=== PATIENT | female | born 1985 | race Caucasian/White ===

== ENCOUNTER → 2021-06-10 06:56 | Outpatient (CLI) | payer OTHER, SELFPAY ==
[2021-06-10 09:27] LABS: Glucose Tol Interpretation INTERPRETATION
[2021-06-10 10:12] LABS: Glucose 1 Hour 151 mg/dL (70-170)
[2021-06-10 10:12] LABS: Glucose Fasting 78 mg/dL (70-100)
[2021-06-10 11:26] LABS: Glucose 2 Hour 122 mg/dL (70-140)
== END ==
PROVIDERS: Referring Provider Nurse Practitioner Obstetrics & Gynecology; Visit Provider Nurse Practitioner Obstetrics & Gynecology
DX: Z34.90 Encounter for supervision of normal pregnancy, unspecified, unspecified trimester (principal); Z3A.16 16 weeks gestation of pregnancy
CPT/HCPCS: 36415; 82951; 82952

== ENCOUNTER → 2021-07-02 12:25 | Outpatient (CLI) | payer OTHER, SELFPAY ==
--- NOTE | 2021-07-02 | DI.US.S_ITS ---
PROCEDURE: US OB >= 14 WEEKS FETUS INDICATIONS: 20 WEEK ANATOMY SCAN OUTSIDE/PRIOR DATING DATA: Last menstrual period (LMP): 02/12/2021. LMP-based estimated date of delivery (QUE): 11/19/2021. First dating scan (date and location): 07/02/2021. Estimated date of delivery (QUE) from first dating scan: 11/15/2021. TECHNIQUE: Real-time scanning was performed of the fetus, with image documentation and biometric measurements. Endovaginal scanning: No COMPARISON: None. FINDINGS: General: A single living intrauterine gestation is present. Presentation: Vertex. Placenta: Placental position is anterior , without previa. Amniotic fluid index: 15.4 cm, normal range is 5-24 cm. heart rate: 145 beats per minute. Maternal cervical canal: 4.0 cm long. Normal lower limit is 2.5 cm. biometrics: Biparietal diameter: 46 mm; 19 weeks 6 days Head circumference: 179 mm; 20 weeks 2 days Abdominal circumference: 156 mm; 20 weeks 6 days Femur length: 36 mm; 21 weeks 2 days Composite gestational age from present scan: 20 weeks 4 days Estimated weight and percentile: 384 g, which is at the 90th percentile for gestational age Anatomic survey: Neuro: Ventricles are non-dilated at less than 10 mm. Cisterna magna is normal at 3-11 mm. Cerebellum is normal in size and morphology. Nuchal skin fold: Normal at less than 6 mm between 14-21 weeks gestational age. Face: Nose and lips, facial profile are normal. Spine: No evidence for spina bifida. Heart: 4-chambered heart is present, with normal ventricular outflow tracts. Diaphragm: Diaphragm is intact. Stomach: Left-sided stomach is present. Kidneys: No hydronephrosis. Normal is less than 5 mm in 2nd trimester, less than 7 mm in 3rd trimester. Cord: 3-vessel cord has orthotopic insertion. Bladder: Normal in size. Extremities: All 4 extremities identified. IMPRESSION: 1. Single living intrauterine gestation. 2. Normal survey of anatomy. We strive to produce accurate, complete, and clear reports of imaging services. To assist us in improving patient care, this report was composed using standard report templates and voice recognition software. Therefore, it may contain abnormal punctuation, insertions and/or omissions. Occasional wrong-word or sound-alike substitutions may occur. Though we review the report and make efforts to correct it, we do recommend that the report be read carefully in proper context to recognize any text inaccuracies. Dictated by: Shakir Sheikh M.D. on 07/02/2021 at 16:55 Approved by: Shakir Sheikh M.D. on 07/02/2021 at 16:57
== END ==
PROVIDERS: PCP Registered Nurse; Referring Provider Nurse Practitioner Obstetrics & Gynecology; Visit Provider Nurse Practitioner Obstetrics & Gynecology
DX: Z36.89 Encounter for other specified antenatal screening (principal); Z3A.20 20 weeks gestation of pregnancy
CPT/HCPCS: 76811

== ENCOUNTER → 2021-08-22 06:52 | Outpatient (CLI) | payer OTHER, SELFPAY ==
[2021-08-22 07:58] LABS: Hematocrit 32.7 % (36-46); Hemoglobin 11.2 g/dL (12.0-16.0); Mean Corpuscular HGB Conc 34.1 % (30-36); Mean Corpuscular Hemoglobin 30.6 PG (26-34); Mean Corpuscular Volume 89.5 fL (80-100); Platelet Count 372 X10^3/uL (150-400); Red Blood Cell Count 3.66 X10^6/uL (4.0-5.2); Red Cell Distribution Width 13.2 % (11.6-14.8); White Blood Cell Count 10.2 X10^3/uL (4.5-11.0)
[2021-08-22 08:23] LABS: Glucose Fasting 79 mg/dL (70-100)
[2021-08-22 08:36] LABS: Glucose 1 Hour 170 mg/dL (70-170)
[2021-08-22 09:11] LABS: Hep C Virus Ab w/Reflex Quant NEGATIVE s/c (NEGATIVE)
[2021-08-22 09:19] LABS: Glucose Tol Interpretation INTERPRETATION
[2021-08-22 09:54] LABS: Glucose 2 Hour 132 mg/dL (70-140)
[2021-08-23 07:36] LABS: Varicella IgG Antibody 742 index (Immune >165)
== END ==
PROVIDERS: PCP Registered Nurse; Referring Provider Nurse Practitioner Obstetrics & Gynecology; Visit Provider Nurse Practitioner Obstetrics & Gynecology
DX: Z34.90 Encounter for supervision of normal pregnancy, unspecified, unspecified trimester (principal); Z3A.26 26 weeks gestation of pregnancy
CPT/HCPCS: 36415; 82951; 82952; 85027; 86787; 86803

== ENCOUNTER 2021-10-22 14:14 | Observation (INO) | payer OTHER, SELFPAY ==
[2021-10-22 15:24] LABS: Add Manual Diff / Slide Review NO; Basophils Absolute Auto 100 /uL (0-100); Basophils Percent Auto 0.8 % (0-2); Eosinophils Absolute Auto 200 /uL (0-450); Eosinophils Percent Auto 2.8 % (2-4); Hematocrit 27.4 % (36-46); Hemoglobin 9.7 g/dL (12.0-16.0); Lymphocytes Absolute Auto 2000 /uL (1100-4500); Lymphocytes Percent Auto 23.2 % (25-40); Mean Corpuscular HGB Conc 35.3 % (30-36); Mean Corpuscular Hemoglobin 31.4 PG (26-34); Mean Corpuscular Volume 88.8 fL (80-100); Monocytes Absolute Auto 500 /uL (0-900); Monocytes Percent Auto 5.8 % (3-14); Neutrophils Absolute Auto 5700 /uL (1500-7000); Neutrophils Percent Auto 67.4 % (50-75); Platelet Count 230 X10^3/uL (150-400); Red Blood Cell Count 3.08 X10^6/uL (4.0-5.2); Red Cell Distribution Width 15.2 % (11.6-14.8); White Blood Cell Count 8.5 X10^3/uL (4.5-11.0)
[2021-10-22 15:33] LABS: Bilirubin Urine UA NEGATIVE (NEGATIVE); Color Urine UA YELLOW; Glucose Urine UA NEGATIVE (Negative); Ketones Urine UA NEGATIVE (NEGATIVE); Leukocyte Esterase Urine UA 3+ (NEGATIVE); Nitrite Urine UA NEGATIVE (Negative); Occult Blood Urine UA TRACE-LYSED (Negative); Protein Urine UA 1+ (Negative); Specific Gravity Urine UA 1.015 (1.000-1.035); Urobilinogen Urine UA 0.2 E.U./dL (0.2)
[2021-10-22 15:47] LABS: Appearance Urine UA Slightly Cloudy
[2021-10-22 15:49] LABS: Amorphous Sediment Urine 2+; Bacteria Urine Few (2-10); Calcium Oxalate Crystals Urine Few; Culture Indicated Urine Specimen Cultured; Mucus Urine 1+ (Negative); RBC Urine 1-5/HPF (0-5/HPF); Squamous Epithelial Cell Urine 1-5 /HPF (0-5/HPF); WBC Urine 10-30/HPF (0-5/HPF)
[2021-10-22 15:49] LABS: Aspartate Aminotransferase 31 IU/L (14-36); BUN Creatinine Ratio 12.2 (6-22); Blood Urea Nitrogen 11 mg/dL (7-17); Estimated Glomerular Filt Rate > 60 mL/min (>60); Uric Acid 7.1 mg/dL (2.5-6.2)
--- NOTE | 2021-10-22 16:01 | DI.US.S_ITS ---
PROCEDURE: US OB LIMITED INDICATIONS: gestational hypertension OUTSIDE/PRIOR DATING DATA: Last menstrual period (LMP): 02/12/2021. LMP-based estimated date of delivery (QUE): 11/19/2021. First dating scan (date and location): 07/02/2021. Estimated date of delivery (QUE) from first dating scan: 11/15/2021. The calculations are made using the ultrasound QUE of 11/15/2021. TECHNIQUE: Real-time scanning was performed of the fetus, with image documentation. Endovaginal scanning: Not performed COMPARISON: None. FINDINGS: A single living intrauterine gestation is present. Presentation: Cephalic. Placenta: Placental position is anterior, without previa. Amniotic fluid index: 15.1 cm, normal range is 5-24 cm. heart rate: 135 beats per minute. Maternal cervical canal: Not seen Estimated gestational age from current study: 34 weeks 1 day. Estimated gestational age from initial ultrasound: 36 weeks 4 days. Estimated weight: 2251 grams Biophysical profile score 8/8. Umbilical artery S/D ratios 2.0, 2.0, 2.5 IMPRESSION: Single living intrauterine gestation with normal biophysical profile and normal cord Doppler systolic/diastolic ratios. Dictated by: Jorge L Rodriguez M.D. on 10/22/2021 at 16:59 Approved by: Jorge L Rodriguez M.D. on 10/22/2021 at 17:02
--- NOTE | 2021-10-22 17:33 | P.TNLD_ITS ---
Visit Information Visit Information Date of evaluation: 10/22/21 Primary OB Provider: Amanda Martinez On-call OB Provider: Debbie Jackson Reason for Evaluation: Yes other Comments/Additional reasons for admission: 36YO @ 36wks0 days by LMP and 6wk US who was referred from clinic for evaluation of elevated BPs. Uncomplicated PN care w/ CNM. No FERNANDEZ, vision changed, RUQ pain or edema. +FM. No cramping or VB. Vital Signs Vital Signs: Serial BPs: 143/87, 139/58, 142/86, 131/83, 138/75, 138/84, 134/81, 145/90, 145/88, 136/80, 138/85, 148/88, 132/78 PFSH Medical History (Updated 10/22/21 @ 18:00 by Amanda Martinez CNM) Infertility Right hip pain Surgical History (Updated 10/22/21 @ 17:52 by Amanda Martinez CNM) History of appendectomy Family History (Updated 10/22/21 @ 17:53 by Amanda Martinez CNM) Father Hypertension Mother Hypertension Social History (Updated 10/22/21 @ 17:53 by Amanda Martinez CNM) marital status: household members: spouse lives independently: Yes occupational status: employed Review of Systems Review of Systems ROS: Yes All systems reviewed with the patient and are negative except as otherwise documented Exam Vital Signs (past 8 hours): Serial BPs above, HR 87, T 98.0F Temporal Presentation: vertex Other: CE deferred Objective Imaging OB US >14 wks limited: My impression: BPP 8/8, AMBROCIO 15.1cm, MVP 5.0cm, EFW 2251g/3%, Artery S/D 2.2, 2.5 Labs Result Diagrams: 10/22/21 15:18 10/22/21 15:18 Labs: Laboratory Results - last 24 hr 10/22/21 10/22/21 10/22/21 15:18 15:18 15:21 WBC 8.5 RBC 3.08 L Hgb 9.7 L Hct 27.4 L MCV 88.8 MCH 31.4 MCHC 35.3 RDW 15.2 H Plt Count 230 Neut % (Auto) 67.4 Lymph % (Auto) 23.2 L Grainger % (Auto) 5.8 Eos % (Auto) 2.8 Baso % (Auto) 0.8 Neut # (Auto) 5700 Lymph # (Auto) 2000 [place]inger # (Auto) 500 Eos # (Auto) 200 Baso # (Auto) 100 BUN 11 Creatinine 0.90 Estimated GFR > 60 BUN/Creatinine Ratio 12.2 Uric Acid 7.1 H AST 31 Urine Color Yellow Urine Appearance Slightly cloudy Urine pH 7.0 Ur Specific [place] 1.015 Urine Protein 1+ H Urine Glucose (UA) Negative Urine Ketones Negative Urine Occult Blood Trace-lysed Urine Nitrate Negative Urine Bilirubin Negative Urine Urobilinogen 0.2 Ur Leukocyte Esterase 3+ H Urine RBC 1-5/hpf Urine WBC 10-30/hpf H Ur Squamous Epith Cells 1-5 /hpf Calcium Oxalate Crystal Few H Amorphous Sediment 2+ Urine Bacteria Few (2-10) H Urine Mucus 1+ H Ur Culture Indicated? Specimen cultured Evaluation Evaluation Baseline heart rate: 145 Variability: Moderate (11-25) monitor accelerations: Present Monitor Decelerations: Variable (single prolonged, lasting 2.5 minutes w/ neisha to 95bpm) Contraction Frequency (minutes): 0 Diagnosis, Plan/Disposition Final Diagnosis (1) Gestational hypertension: Status: Acute (2) Intrauterine growth restriction (IUGR) affecting care of mother, first trimester, single gestation: Status: Acute (3) Anemia affecting : Status: Acute Plan/Disposition Plan: Consulted [facility]/ who agreed w/ POC for repeat BPP in 5 days and IOL in 7 days @ 37wks. Reviewed warning sx and when to call w/ patient. OB Disposition: home
[2021-10-22 17:35] LABS: Creatinine Urine Random 81.4 mg/dL; Protein (Total) Urine Random 34 mg/dL (0-12); Protein Creatinine Ratio Urine 0.41 GRAM/24H
== END 2021-10-22 17:30 | disposition home or self-care (01) ==
PROVIDERS: Admitting Provider Nurse Practitioner Obstetrics & Gynecology; PCP Registered Nurse; Referring Provider Nurse Practitioner Obstetrics & Gynecology; Visit Provider Nurse Practitioner Obstetrics & Gynecology
DX: Z36.85 Encounter for antenatal screening for Streptococcus B (principal); O13.3 Gestational [pregnancy-induced] hypertension without significant proteinuria, third trimester; O36.5930 Maternal care for other known or suspected poor fetal growth, third trimester, not applicable or unspecified; O99.013 Anemia complicating pregnancy, third trimester; Z3A.36 36 weeks gestation of pregnancy
CPT/HCPCS: 59025; 59050; 76815; 76819; 81001; 82570; 84156; 84450; 84550; 85025; 87081; 87086; G0378; G0379

== ENCOUNTER → 2021-10-22 19:54 | Outpatient (ROUT) | payer OTHER, SELFPAY | PROVIDERS: PCP Registered Nurse; Visit Provider Nurse Practitioner Obstetrics & Gynecology | DX: Z36.85 Encounter for antenatal screening for Streptococcus B (principal); Z3A.36 36 weeks gestation of pregnancy | CPT/HCPCS: 87081 ==

== ENCOUNTER 2021-10-28 19:37 | Inpatient (IN) | payer OTHER, SELFPAY ==
[2021-10-28 20:25] VITALS: BP 157/103; PULSE 84
[2021-10-28] MEDS: LABETALOL 20 MG/4 ML SYRINGE IV (20:25)
--- NOTE | 2021-10-28 20:34 | P.HPOB_ITS ---
OB HPI Date/Time Date of admission: 10/28/21 Date Patient Seen: 10/28/21 Time Patient Seen: 20:00 History of Present Condition Chief complaint: induction : 1 Para: 0 Estimated Date of Delivery: 10/28/21 Estimated Gestational Age (weeks): 36.6 Narrative: Jaye Turk is a 36 year old female @ LMP and 10wk US who presents for IOL for preeclampsia and IUGR. Uncomplicated PN care w/ CNM until diagnosis of pr eeclampsia and IUGR 10/22/21 with serial BPs 130-140's/70's-80's, Pr:Cr 0.41 and EFW 2251g/3%, AMBROCIO 15.1cm, BPP 8/8. Also had a BPP of 8/8 on 10/27/21. Has a mild FERNANDEZ, rated 2/10 and had not taken anything. No vision changes, RUQ pain or edema. Anxious about the and complications, but eager to meet her baby and agreeable to interventions needed. Indications Indication for induction OB: gestational HTN/pre-eclampsia and intra-uterine growth restriction History of Present care: good care, initiated at week # (10), number of visits (9) and pounds weight gain (32) Dating criteria: LMP confirmed by 1st trimester US Ultrasounds: normal mid trimester US Obstetrical complications: preeclampsia and growth restriction Medical complications: other (anemia) Preadmission Labs Blood type: O (+) positive -: Antibody screen: negative, GBS status: negative, HBsAG: negative, HIV: negative and RPR/VDLR: negative -: Rubella: immune and Varicella: immune HCT: 30.6 HCAB: negative Cell-free DNA: Negative, female Narrative: 2hr gtt: 79/170/132 Evaluation Evaluation Baseline heart rate: 120 Variability: Moderate (11-25) monitor accelerations: Present Monitor Decelerations: Absent Contraction Frequency (minutes): 0 Dilation: Closed Effacement: 40-50% station: -3 Position of cervix: posterior Consistency: medium Chavez score: 2 PFSH Medical History Infertility Right hip pain Surgical History History of appendectomy Family History Father Hypertension Mother Hypertension Social History marital status: household members: spouse lives independently: Yes occupational status: employed Meds Home Medications and Allergies Home Medications Medication Instructions Recorded Confirmed Type metformin 500 mg tablet tab 10/28/21 History Allergies Allergy/AdvReac Type Severity Reaction Status Date / Time No Known Drug Allergies Allergy Verified 10/22/21 15:03 Review of Systems Review of Systems ROS: Yes All systems reviewed with the patient and are negative except as other dumont documented OB Exam Narrative Exam Narrative: VS: 164/104, HR 85bpm, T 36.2C Temporal Resp Effort & Inspection: normal respiratory effort and able to speak in complete sentences Auscultation: clear to auscultation bilaterally Cardio Rate: regular rate Rhythm: regular rhythm Extremities DTR's: Rt Patellar: 0 and Lt Patellar: 0 Presentation: vertex Objective Labs Result Diagrams: 10/28/21 20:25 10/28/21 20:25 Assessment and Plan Assessment and Plan Assessment and Plan narrative: A: Term nullipara IOL for: Preeclampsia & IUGR, cervix not favorable Severe range BP: antihypertensive and MgSO4 indicated Obesity with pre- insulin resistance tx'd with metformin 500mg PO daily Anxiety No indication for GB prophylaxis Cat I FHR P: Informed consent for IOL obtained. Admit for cervical ripening. Consulted [facility]/ for severe range BPs who agrees with co-management and initiated labetalol 20mg IV and MgSO4. Dr. Hidalgo to manage BP, CNM to manage labor. Cervadil for cervical ripening overnight. Will attempt Ruiz balloon in am.
[2021-10-28 20:44] LABS: Add Manual Diff / Slide Review NO; Basophils Absolute Auto 100 /uL (0-100); Basophils Percent Auto 1.1 % (0-2); Eosinophils Absolute Auto 300 /uL (0-450); Eosinophils Percent Auto 2.9 % (2-4); Hematocrit 30.9 % (36-46); Hemoglobin 10.6 g/dL (12.0-16.0); Lymphocytes Absolute Auto 2600 /uL (1100-4500); Lymphocytes Percent Auto 27.8 % (25-40); Mean Corpuscular HGB Conc 34.2 % (30-36); Mean Corpuscular Hemoglobin 30.7 PG (26-34); Mean Corpuscular Volume 89.8 fL (80-100); Monocytes Absolute Auto 600 /uL (0-900); Monocytes Percent Auto 6.3 % (3-14); Neutrophils Absolute Auto 5900 /uL (1500-7000); Neutrophils Percent Auto 61.9 % (50-75); Platelet Count 251 X10^3/uL (150-400); Red Blood Cell Count 3.45 X10^6/uL (4.0-5.2); Red Cell Distribution Width 15.7 % (11.6-14.8); White Blood Cell Count 9.4 X10^3/uL (4.5-11.0)
[2021-10-28 21:01] LABS: Aspartate Aminotransferase 23 IU/L (14-36); BUN Creatinine Ratio 17.9 (6-22); Blood Urea Nitrogen 12 mg/dL (7-17); Estimated Glomerular Filt Rate > 60 mL/min (>60); Uric Acid 6.8 mg/dL (2.5-6.2)
[2021-10-28 21:01] LABS: COVID19 -Nasal RAPID Negative (Negative)
[2021-10-28] MEDS: MAGNESIUM SULFATE 4 GM/100 ML PIGGYBACK IV (21:10)
[2021-10-28] MEDS: DINOPROSTONE VAG (CERVIDIL) 10 MG VAG (21:22)
[2021-10-28] MEDS: MAGNESIUM SULFATE 20 GM/500 ML IV.SOLN IV (21:41)
[2021-10-28 22:02] LABS: Creatinine Urine Random 25.9 mg/dL; Protein (Total) Urine Random 33 mg/dL (0-12); Protein Creatinine Ratio Urine 1.27 GRAM/24H
[2021-10-29] MEDS: hydrOXYzine pamoate 25 MG CAPSULE 50 MG PO (00:35)
[2021-10-29] MEDS: ACETAMINOPHEN 325 MG TABLET 650 MG PO ×3 (00:50→20:15)
[2021-10-29 02:48] LABS: Magnesium 4.5 mg/dL (1.6-2.3)
[2021-10-29] MEDS: MAGNESIUM SULFATE 20 GM/500 ML IV.SOLN IV ×2 (08:02→18:14)
[2021-10-29 08:07] VITALS: BP 133/88; PULSE 87
[2021-10-29] MEDS: LABETALOL 100 MG TABLET 200 MG PO ×2 (08:07→19:35)
[2021-10-29 08:48] VITALS: BP 159/97; PULSE 82
--- NOTE | 2021-10-29 09:40 | PM.OBPNLAB ---
Pain Control Comments: Pt able to sleep intermittently through the night. Last BP 149/93. FHR cat 1. Reports mild FERNANDEZ which feels is typical for herand she has not been hydrating well, minimal relief with Tylenol. Mild nausea but able to tolerate PO this morning. Cervidil removed 0900. VS: BP 149/93mmHg, HR 78bpm, RR 18/min, T 35.8C Temporal, SpO2 97% on RA Pelvic Exam Dilation (cm): 0 Effacement (%): 40 station: -3 Amniotic membrane status: Intact Contractions Contractions on admission: none Monitor mode: External Pitocin rate (mU/min): 0 Status status: Category l Heart Rate Baseline: 125 Monitor Accelerations: Present Monitor Decelerations: Absent Monitor Variability: Moderate Assessment and Plan Assessment: induction ongoing Comments: Discussed need for continued cervical ripening, orders for PO misoprostil placed, reassess in 8 hrs. Will attempt Ruiz once 1cm dilated.
[2021-10-29 10:08] LABS: Magnesium 5.7 mg/dL (1.6-2.3)
[2021-10-29] MEDS: miSOPROStoL 25 MCG TABLET 50 MCG PO ×2 (11:03→15:16)
[2021-10-29 13:56] VITALS: BP 143/96
[2021-10-29 14:19] LABS: Magnesium 5.9 mg/dL (1.6-2.3)
[2021-10-29] MEDS: LACTATED RINGERS 1,000 ML 100 ML IV (15:17)
[2021-10-29] MEDS: fentaNYL 100 MCG/2 ML INJ IV (18:12)
--- NOTE | 2021-10-29 18:48 | PM.OBPNLAB ---
Date/Time Date Patient Seen: 10/29/21 Time Patient Seen: 18:15 Pain Control Pain control: narcotic analgesia (given prior to Ruiz balloon placement) Comments: Has been able to sleep on and off all day during administration of 2 doses of oral misoprostil. Scan spotting, feeling occasional mild contractions only. FERNANDEZ has resolved. Consents to Ruiz balloon placement during this exam. Labs: Magnesium level therapeutic at 5.9mg/dL, last checked at 1353 VS: BP 153/97mmHg, HR 68bpm, T 36.6C Temporal Pelvic Exam Dilation (cm): 0.5 Effacement (%): 40 station: -3 Amniotic membrane status: Intact Comments: Ruiz balloon placed with sterile speculum exam and inflated with 60mL sterile saline, moderate vaginal bleeding during placement. Contractions Monitor mode: External Contraction frequency (min): 6 Contraction duration (min): 1 Contraction pattern: Regular Contraction intensity: Mild Status status: Category l Heart Rate Baseline: 125 Monitor Accelerations: Present Monitor Decelerations: Absent Assessment and Plan Assessment: induction ongoing Plan: begin patient augmentation Comments: Reviewed patient status and IOL progress with . Low dose pitocin (max 6mu/min) until Ruiz balloon comes out. Continue MgSO4 @ 2gm/hr and Labetalol 200mg PO Q12hrs.
[2021-10-29] MEDS: OXYTOCIN PREMIX 30 UNIT/500 ML PLAST..BAG IV (19:04)
[2021-10-29 19:35] VITALS: BP 155/103; PULSE 79
[2021-10-29 22:09] LABS: Magnesium 6.2 mg/dL (1.6-2.3)
--- NOTE | 2021-10-29 22:20 | PM.OBPNLAB ---
Date/Time Date Patient Seen: 10/29/21 Time Patient Seen: 22:21 Pain Control Pain control: epidural Comments: Patient felt progressively strengthening contractions and requested epidural which was placed with good relief. CNM at bedside throughout this process. VS: BP 143/92mmhg, HR 70bpm, T 35.9C Temporal Pelvic Exam Dilation (cm): 4 Effacement (%): 75 station: -3 Amniotic membrane status: Intact Comments: Ruiz balloon removed from vagina prior to exam. CE @ 2330 after Ruiz catheter placement. Contractions Monitor mode: External Pitocin rate (mU/min): 0 (Shut off at 2150 after late decel) Contraction frequency (min): 6 Contraction duration (min): 1 Contraction pattern: Regular Contraction intensity: Mild Status status: Category ll (overall reassuring) Heart Rate Baseline: 125 Monitor Accelerations: Present Monitor Decelerations: Late (2149 and 2200 decelerations x4) Comments: Assessment and Plan Assessment: active labor and induction ongoing Plan: continuous present management Comments: Restart pitocin, per protocol. Encourage rest and position changes w/ peant ball. Reassess in 4 hours or sooner, PRN.
[2021-10-30 03:41] LABS: Magnesium 6.4 mg/dL (1.6-2.3)
--- NOTE | 2021-10-30 03:45 | PM.OBPNLAB ---
Date/Time Date Patient Seen: 10/30/21 Time Patient Seen: 03:45 Pain Control Pain control: epidural Comments: Sleeping well. Feeling a little itchy, no FERNANDEZ, coping well. Lab: Magnesium level- 6.4mg/dL @ 0320 VS: BP 135/77mmHg, HR 66bpm, T 35.9F Temporal Pelvic Exam Dilation (cm): 5 Effacement (%): 75 station: -3 Amniotic membrane status: Intact Comments: BBOW, tight band at internal os massaged/loosened during exam Contractions Contractions on admission: none Monitor mode: External Pitocin rate (mU/min): 5 Contraction frequency (min): 5 Contraction pattern: Regular Contraction intensity: Moderate Status status: Category ll (overall reassuring) Heart Rate Baseline: 125 Monitor Accelerations: Present Monitor Decelerations: Late (occasional) Monitor Variability: Moderate Assessment and Plan Assessment: active labor and induction ongoing Plan: continuous present management Comments: Continue pitocin titration to adequate contraction pattern. Reassess in 4 hours or sooner, PRN.
[2021-10-30] MEDS: NALBUPHINE 20 MG/ML AMPUL 5 MG IV (04:00)
[2021-10-30] MEDS: LACTATED RINGERS 1,000 ML 100 ML IV (05:26)
--- NOTE | 2021-10-30 07:32 | PM.OBPNLAB ---
Date/Time Date Patient Seen: 10/30/21 Time Patient Seen: 07:32 Pain Control Pain control: tolerating well and epidural Comments: Pt able to rest intermittently through the night. Improved itching w/ admin of nubain this morning. VS:BP: 145/90. HR: 61 bpm. T: 35.8. O2 sat: 98% Pelvic Exam Dilation (cm): 6 Effacement (%): 80 station: -2 Amniotic membrane status: Ruptured (SROM, clear fluid) Comments: Checked by RN Contractions Monitor mode: External Pitocin rate (mU/min): 6 Contraction frequency (min): 5 Contraction duration (min): 1 Contraction pattern: Regular Contraction intensity: Moderate Status status: Category ll (overall reassuring) Heart Rate Baseline: 120 Monitor Accelerations: Present Monitor Decelerations: Late and Variable Monitor Variability: Minimal Assessment and Plan Comments: Consulted with [facility]/Dr. Comer about recurrent late decelerations which now seem to have resolved. Labetalol increased to 300 mg BID. Will continue to watch closely and consult for primary as indicated.
--- NOTE | 2021-10-30 08:10 | PM.OBPNLAB ---
Date/Time Date Patient Seen: 10/30/21 Time Patient Seen: 08:05 Pain Control Pain control: epidural Comments: No FERNANDEZ, [place], nausea, or upper abdominal pain. 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 36 yo G1 undergoing IOL for preeclampsia and IUGR.? Uncomplicated PN care w/ CNM until diagnosis of preeclampsia and IUGR 10/22/21 with serial BPs 130-140's/70's-80's, Pr:Cr 0.41 and EFW 2251g/3%, AMBROCIO 15.1cm, BPP 8/8. Pt had severe range BPs on presentation to [facility] [place] for IOL and started on Magnesium sulfate and Labetolol 200 mg BID on admission. she has now progressed into active labor at 6 cm. She did have a drop in her BP after the epidural but BP now is running consistently 140 -150s/90s. Pelvic Exam Dilation (cm): 6 Effacement (%): 80 station: -2 Amniotic membrane status: Ruptured (SROM, clear fluid) Contractions Monitor mode: External Contraction frequency (min): 5 Contraction pattern: Regular Contraction intensity: Moderate Status status: Category ll (overall reassuring) Monitor Accelerations: Episodic Monitor Decelerations: Late (recent new repetitive lates, then episodic after position change to the left lateral, now resolved.) Monitor Variability: Moderate Assessment and Plan Assessment: active labor and induction ongoing Comments: Pt with recent SROM. With recent late decels patient repositioned and Pitocin decreased from 6 to 4 mu. Decelerations now resolved. Close observation of EFM. Low threshold to proceed if needed a for delivery for any persistent late decelerations. Will increase her labetalol to 300 mg b.i.d. Continue magnesium sulfate. Repeat preeclamptic labs. Discussed with patient.
[2021-10-30] MEDS: NALBUPHINE 20 MG/ML AMPUL 2.5 MG IV (08:32)
[2021-10-30 08:59] LABS: Add Manual Diff / Slide Review NO; Basophils Absolute Auto 100 /uL (0-100); Basophils Percent Auto 0.8 % (0-2); Eosinophils Absolute Auto 200 /uL (0-450); Eosinophils Percent Auto 1.8 % (2-4); Hematocrit 33.2 % (36-46); Hemoglobin 11.1 g/dL (12.0-16.0); Lymphocytes Absolute Auto 1600 /uL (1100-4500); Lymphocytes Percent Auto 17.8 % (25-40); Mean Corpuscular HGB Conc 33.6 % (30-36); Mean Corpuscular Hemoglobin 30.6 PG (26-34); Mean Corpuscular Volume 91.1 fL (80-100); Monocytes Absolute Auto 400 /uL (0-900); Monocytes Percent Auto 4.3 % (3-14); Neutrophils Absolute Auto 6600 /uL (1500-7000); Neutrophils Percent Auto 75.3 % (50-75); Platelet Count 198 X10^3/uL (150-400); Red Blood Cell Count 3.64 X10^6/uL (4.0-5.2); White Blood Cell Count 8.8 X10^3/uL (4.5-11.0)
[2021-10-30 09:10] LABS: Aspartate Aminotransferase 29 IU/L (14-36); BUN Creatinine Ratio 17.3 (6-22); Blood Urea Nitrogen 14 mg/dL (7-17); Estimated Glomerular Filt Rate > 60 mL/min (>60); Uric Acid 7.1 mg/dL (2.5-6.2)
[2021-10-30 09:12] LABS: Magnesium 6.8 mg/dL (1.6-2.3)
[2021-10-30 09:35] VITALS: BP 136/81
[2021-10-30] MEDS: LABETALOL 100 MG TABLET 300 MG PO ×2 (09:35→21:42)
--- NOTE | 2021-10-30 10:16 | P.PCNOB_ITS ---
Events: No Care Labor & Delivery Delivery date: 10/30/21 Intrapartal Events: Severe Preeclampsia Cervical ripening method: per Cervidil protocol (Misoprostol x2 and baldwin balloon) Induction method: per pitocin protocol Delivery augmentation: pitocin Delivery monitor: external FHT and external uterine Route of delivery: Episiotomy description: None L&D Laceration Description: Vaginal - 2nd Degree Delivery repair: chromic (3.0) Quantitative Blood Loss: 225 Anesthesia Type: Epidural Narrative: Patient labored well with adequate epidural anesthesia. Began to feel inc reasing rectal pressure, was examine and found to be C/C/+2. RT called to standby for IUGR w/ Cat II FHT tracing. Coaching to slow descent led to NSVB of a petit, but vigorous baby girl in VIDAL position. There was no nuchal cord and the shoulders delivered without additional maneuvers. with a short cord was placed on maternal pelvis for drying and skin to skin. Remaining 30 units of pitocin in 500ML LR was increased to 250mL/hr for AMTSL. After cessation of pulsation, the cord was double clamped by CNM and cut by FOB. Gentle cord traction and single maternal push led to spontaneous, Schultze delivery of an apparently intact placenta, membranes and 3VC. Placenta is notably small but otherwise appears normal. Fundus immediately firm and bleeding minimal. QBL 225mL. Inspection revealed a short 2nd degree vaginal laceration which was repaired with 30 chromic in the usual fashion under adequate epidural anesthesia. Both mother and baby stable and skin to skin as I left the room. [place] Baby 1: Infant gender: Female Presentation: vertex Position: Right Occiput Anterior Placenta delivery description: Spontaneous Cord Vessel Description: 3 Vessels score (1 min): 8 score (5 min): 9 weight: 2.168 kg Plan for aftercare: Routine care
[2021-10-30] MEDS: KETOROLAC 30 MG/ML VIAL IV (11:56)
[2021-10-30] MEDS: MAGNESIUM SULFATE 20 GM/500 ML IV.SOLN IV (13:48)
[2021-10-30 13:52] VITALS: BP 156/106
[2021-10-30] MEDS: LABETALOL 20 MG/4 ML SYRINGE IV (13:52)
--- NOTE | 2021-10-30 14:14 | PM.CALLCOV.1 ---
Call Coverage Note Note Date of Patient Contact: 10/30/21 Time of Patient Contact: 14:00 Narrative of Care Provided: Called at 1330 with patient's elevated BP into severe range, 176/109, repeated 10 minutes later BP 165/102 . She is a few hours status post vaginal delivery after IOL for pre-e with severe features. she does continue on magnesium sulfate and her or her labetalol was increased to 300 mg b.i.d. this a.m. I ordered labetalol 20 mg IV x1 to be given with repeat BP check 10 minutes later. Labetalol just obtained at approximately 2:00 p.m. Had nurse recheck BP at start of giving her the medication since it had now been approximately 30 minutes. Repeat BP now 133/87. Initial small amount of IV labetalol given, proximally 2 mg. I had the RN hold the remainder of the labetalol at this time. Will re-check BP in 15 minutes.
[2021-10-30] MEDS: LANOLIN OINT 7 GM 1 APPLIC TOP (21:40)
[2021-10-30 21:42] VITALS: BP 171/92; PULSE 71
[2021-10-30 21:42] LABS: Magnesium 6.9 mg/dL (1.6-2.3)
[2021-10-30] MEDS: IBUPROFEN 600 MG TABLET PO (21:42)
[2021-10-30 22:30] VITALS: BP 130/81; PULSE 68
[2021-10-31] MEDS: MAGNESIUM SULFATE 20 GM/500 ML IV.SOLN IV (00:08)
[2021-10-31] MEDS: LACTATED RINGERS 1,000 ML 100 ML IV (00:09)
[2021-10-31] MEDS: ACETAMINOPHEN 325 MG TABLET 650 MG PO ×3 (02:45→21:55)
[2021-10-31 03:25] LABS: Magnesium 6.8 mg/dL (1.6-2.3)
[2021-10-31] MEDS: IBUPROFEN 600 MG TABLET PO ×3 (05:40→17:56)
[2021-10-31] MEDS: LABETALOL 100 MG TABLET 300 MG PO ×2 (09:33→21:54)
[2021-10-31] MEDS: FERROUS SULFATE 325 MG TABLET PO (09:34)
[2021-10-31 10:56] LABS: Add Manual Diff / Slide Review NO; Basophils Absolute Auto 100 /uL (0-100); Basophils Percent Auto 0.5 % (0-2); Eosinophils Absolute Auto 200 /uL (0-450); Eosinophils Percent Auto 1.4 % (2-4); Hematocrit 28.2 % (36-46); Hemoglobin 9.6 g/dL (12.0-16.0); Lymphocytes Absolute Auto 1200 /uL (1100-4500); Lymphocytes Percent Auto 10.5 % (25-40); Mean Corpuscular HGB Conc 33.9 % (30-36); Mean Corpuscular Hemoglobin 31.1 PG (26-34); Mean Corpuscular Volume 91.5 fL (80-100); Monocytes Absolute Auto 500 /uL (0-900); Monocytes Percent Auto 4.6 % (3-14); Neutrophils Absolute Auto 9300 /uL (1500-7000); Platelet Count 177 X10^3/uL (150-400); Red Blood Cell Count 3.08 X10^6/uL (4.0-5.2); Red Cell Distribution Width 16.4 % (11.6-14.8); White Blood Cell Count 11.2 X10^3/uL (4.5-11.0)
[2021-10-31 11:10] LABS: Aspartate Aminotransferase 25 IU/L (14-36); BUN Creatinine Ratio 17.9 (6-22); Blood Urea Nitrogen 14 mg/dL (7-17); Estimated Glomerular Filt Rate > 60 mL/min (>60); Uric Acid 7.1 mg/dL (2.5-6.2)
--- NOTE | 2021-10-31 14:56 | P.PNOB_ITS ---
Subjective - OB Subjective Patient comments: no complaints, pain well controlled, tolerating diet and flatus present baby status: doing well [place] feeding status: breast and bottle feeding Narrative: PPD1: S/p NSVB with severe preeclampsia. Voiding and ambulating independently. Magnesium was turned off this morning, 24 hours , and she has showered and is feeling good. Working on , pumping and supplementing d/t SAG baby. Pain is well controlled w/ PO medication. Bleeding is light. Tolerating a general diet. Date Patient Seen: 10/31/21 Time Patient Seen: 15:08 Exam Vital Signs (past 8 hours): BP: 134/86mmhg, HR 78bpm, RR 16/min, T 97.6, SpO2-99.0 Other: Fundus firm @ u-1, lochia small, no clots. Perineum well approximated with slight edema Objective Labs Result Diagrams: 10/31/21 10:05 10/31/21 10:05 Labs: Laboratory Results - last 24 hr 10/30/21 10/31/21 10/31/21 21:20 03:05 10:05 WBC 11.2 H RBC 3.08 L Hgb 9.6 L Hct 28.2 L MCV 91.5 MCH 31.1 MCHC 33.9 RDW 16.4 H Plt Count 177 Neut % (Auto) 83.0 H Lymph % (Auto) 10.5 L [place] % (Auto) 4.6 Eos % (Auto) 1.4 L Baso % (Auto) 0.5 Neut # (Auto) 9300 H Lymph # (Auto) 1200 [place] # (Auto) 500 Eos # (Auto) 200 Baso # (Auto) 100 BUN Creatinine Estimated GFR BUN/Creatinine Ratio Uric Acid Magnesium 6.9 H* 6.8 H* AST 10/31/21 10:05 WBC RBC Hgb Hct MCV MCH MCHC RDW Plt Count Neut % (Auto) Lymph % (Auto) [place] % (Auto) Eos % (Auto) Baso % (Auto) Neut # (Auto) Lymph # (Auto) [place] # (Auto) Eos # (Auto) Baso # (Auto) BUN 14 Creatinine 0.78 Estimated GFR > 60 BUN/Creatinine Ratio 17.9 Uric Acid 7.1 H Magnesium AST 25 Assessment & Plan Assessment and Plan (1) Severe preeclampsia: Status: Acute (2) First degree perineal laceration during delivery: Status: Acute Plan day: 1 plan OB: routine care Comments: As long as BPs remain stable on PO labetalol, anticipate d/c to home tomorrow. Time Spent With Patient Time: Total time spent is greater than 50% in coordination of care (as documented) at patient's floor/unit and/or counseling patient: Time with patient: 15-24 minutes
--- NOTE | 2021-10-31 18:09 | PM.PN.1 ---
Subjective Subjective Date Patient Seen: 10/31/21 Time Patient Seen: 18:09 Interval history: Patient is a 36-year-old 1 para 1 day # 1 status post spontaneous vaginal delivery after induction at 37-,1/7 weeks gestation due to severe preeclampsia. She was on magnesium sulfate for 24 hours. This was discontinued this morning. She is diuresing. No headache or blurred vision. No spots before her eyes. No right upper quadrant pain. Exam Narrative Exam Narrative: Generally: Patient is sitting up in bed, no acute distress Fundus: Firm at U -2 Extremities: 1+ edema, 1+ DTRs, no clonus, negative Homans Objective Labs Result Diagrams: 10/31/21 10:05 10/31/21 10:05 Labs: Laboratory Results - last 24 hr 10/30/21 10/31/21 10/31/21 21:20 03:05 10:05 WBC 11.2 H RBC 3.08 L Hgb 9.6 L Hct 28.2 L MCV 91.5 MCH 31.1 MCHC 33.9 RDW 16.4 H Plt Count 177 Neut % (Auto) 83.0 H Lymph % (Auto) 10.5 L [place] % (Auto) 4.6 Eos % (Auto) 1.4 L Baso % (Auto) 0.5 Neut # (Auto) 9300 H Lymph # (Auto) 1200 [place] # (Auto) 500 Eos # (Auto) 200 Baso # (Auto) 100 BUN Creatinine Estimated GFR BUN/Creatinine Ratio Uric Acid Magnesium 6.9 H* 6.8 H* AST 10/31/21 10:05 WBC RBC Hgb Hct MCV MCH MCHC RDW Plt Count Neut % (Auto) Lymph % (Auto) [place] % (Auto) Eos % (Auto) Baso % (Auto) Neut # (Auto) Lymph # (Auto) [place] # (Auto) Eos # (Auto) Baso # (Auto) BUN 14 Creatinine 0.78 Estimated GFR > 60 BUN/Creatinine Ratio 17.9 Uric Acid 7.1 H Magnesium AST 25 PFSH Medical History Infertility Right hip pain Surgical History History of appendectomy Family History Father Hypertension Mother Hypertension Social History marital status: household members: spouse lives independently: Yes occupational status: employed Smoking Status: Never smoker Assessment & Plan Assessment & Plan narrative: Assessment: 36-year-old 1 para 1 day # 1 status post spontaneous vaginal delivery after induction of labor at 37-,1/7 weeks gestation due to severe preeclampsia. Patient doing well off of magnesium sulfate Labs are normal Blood pressure stable Plan: Continue labetalol 300 mg b.i.d. Consider discharge tomorrow Time Spent With Patient Critical Care time: I spent a total of [] minutes of critical care time on this patient's care today; this time is exclusive of procedural time.
[2021-10-31 21:54] VITALS: BP 154/85; PULSE 71
[2021-10-31] MEDS: DOCUSATE 100 MG CAPSULE 200 MG PO (21:54)
[2021-10-31 22:20] VITALS: BP 156/94; PULSE 72
[2021-11-01] MEDS: IBUPROFEN 600 MG TABLET PO ×2 (00:40→09:09)
--- NOTE | 2021-11-01 06:58 | P.DS_ITS ---
Discharge Providers Provider Date of admission: 10/28/21 19:37 Discharge Date: 11/01/21 Primary care physician: GOPI Agarwal Consults: 10/31/21 10:14 Consult to Piece Goods Clerk Routine Comment: Discharge provider: Amanda Martinez CNM Summary Hospital Course Date Patient Seen: 11/01/21 Time Patient Seen: 06:59 Diagnoses: Preeclampsia with severe features, NSVB with a first degree perineal laceration Hospital Course: PPD2: Stable s/p NSVB w/ first degree perineal laceration. Magnesium sulfate was stopped at 24 hours with stable serum preeclampsia panel. BPs have been stable x 24 hours since stopping magnesium on oral labetalol 300mg BID. Voiding, ambulating and independently. Tolerating a general diet. Pain is well controlled with PO medication. Vaginal bleeding is decreasing, small amount, no clots. Peripartum Data Delivery Method: Natural Vaginal Laceration Description: Perineal - 1st Degree Episiotomy description: None Procedures: O70.0 complications: perineal laceration [place] 1: Gender: Female Disposition of : home (once feeding is well established and weight loss is stabilized) Discharge Diagnosis (1) Severe preeclampsia: Status: Acute Problem Details: stable 40 hours after delivery on PO labetalol (2) First degree perineal laceration during delivery: Status: Acute Problem Details: routine course Status at Discharge Cognitive/behavioral status at discharge: oriented and calm Functional status at discharge: independent ambulation Overall status at discharge: patient is progressing back to baseline Time Spent with Patient Time attestation: Total time spent providing and/or coordinating discharge services: Objective Labs Result Diagrams: 10/31/21 10:05 10/31/21 10:05 Labs: Laboratory Results - last 24 hr 10/31/21 10/31/21 10:05 10:05 WBC 11.2 H RBC 3.08 L Hgb 9.6 L Hct 28.2 L MCV 91.5 MCH 31.1 MCHC 33.9 RDW 16.4 H Plt Count 177 Neut % (Auto) 83.0 H Lymph % (Auto) 10.5 L [place] % (Auto) 4.6 Eos % (Auto) 1.4 L Baso % (Auto) 0.5 Neut # (Auto) 9300 H Lymph # (Auto) 1200 [place] # (Auto) 500 Eos # (Auto) 200 Baso # (Auto) 100 BUN 14 Creatinine 0.78 Estimated GFR > 60 BUN/Creatinine Ratio 17.9 Uric Acid 7.1 H AST 25 Exam Vital Signs (past 8 hours): BP 146/87mmHg, HR 56bpm, T 97.4F Temporal Other: Fundus firm @ u-2, lochia light, without clots. Perineum well approximated with minimal edema. Discharge Plan Discharge Plan Patient Disposition: Home Discharge orders & Medications Prescriptions: New docusate sodium 100 mg Capsule 200 mg PO DAILY 14 Days Qty: 20 0RF ibuprofen 600 mg Tablet 600 mg PO Q6HR PRN (Reason: Pain, Mild (1-3)) 14 Days Qty: 60 0RF labetalol 100 mg Tablet 300 mg PO BID 14 Days Qty: 84 0RF Continued metformin 500 mg tablet 500 tab PO 3XD Label Comments: take 1 tablet by mouth daily for 1 week then 1 tablet twice a day... (REFER TO PRESCRIPTION NOTES). Follow up/Referrals: Amanda Martinez CNM [[employer]] - (Follow-up Wednesday, November 05, 2021 @ 5:00pm for BP check in office Follow-up Friday, November 12, 2021 @ 1115 by Telehealth Follow-up Sunday, December 12, 2021 @ 1045 in office) Song Ball ARNP [Primary Care Provider] - Diet/Activity/Treatments Diet: Diet as Tolerated and Regular Activity: pelvic rest x 6 weeks Skin/Wound/Dressing Care Report to your healthcare provider any signs of infection, such as:: chills, fever, increased pain, unusual drainage and unusual redness Visit Report/Discharge Packet Instructions: Depression Discharge Data Primary Care Provider: Song Ball
[2021-11-01 09:08] VITALS: BP 150/82; PULSE 73
[2021-11-01] MEDS: LABETALOL 100 MG TABLET 300 MG PO (09:08)
[2021-11-01] MEDS: DOCUSATE 100 MG CAPSULE 200 MG PO (09:08)
[2021-11-01] MEDS: FERROUS SULFATE 325 MG TABLET PO (09:08)
[2021-11-01 10:04] VITALS: BP 150/82; PULSE 70; RESP 16; TEMP 36.9
--- NOTE | 2021-11-01 10:04 | P.PN_ITS ---
Subjective Subjective Date Patient Seen: 11/01/21 Time Patient Seen: 10:04 Interval history: Patient is a 36-year-old 1 para 1 day # 2 status post spontaneous vaginal delivery after induction of labor due to IUGR/severe preeclampsia. Her blood pressure is stable. She is on labetalol 300 mg twice a day. No headache or blurred vision. No spots before eyes. No right upper quadrant pain. She is pumping and supplementing with formula. Bleeding is tapering. Exam Vital Signs (past 8 hours): - 11/01/21 09:08 Pulse Rate 73 Blood Pressure 150/82 H Narrative Exam Narrative: Generally: Patient is sitting up in bed, no acute distress Lungs: Clear to auscultation bilaterally Cardiovascular: Regular rate and rhythm Fundal height: U -3 Extremities: 1+ edema, 1+ DTRs, no clonus Objective Labs Result Diagrams: 10/31/21 10:05 10/31/21 10:05 Labs: Laboratory Results - last 24 hr 10/31/21 10/31/21 10:05 10:05 WBC 11.2 H RBC 3.08 L Hgb 9.6 L Hct 28.2 L MCV 91.5 MCH 31.1 MCHC 33.9 RDW 16.4 H Plt Count 177 Neut % (Auto) 83.0 H Lymph % (Auto) 10.5 L [place] % (Auto) 4.6 Eos % (Auto) 1.4 L Baso % (Auto) 0.5 Neut # (Auto) 9300 H Lymph # (Auto) 1200 [place] # (Auto) 500 Eos # (Auto) 200 Baso # (Auto) 100 BUN 14 Creatinine 0.78 Estimated GFR > 60 BUN/Creatinine Ratio 17.9 Uric Acid 7.1 H AST 25 PFSH Medical History Infertility Right hip pain Surgical History History of appendectomy Family History Father Hypertension Mother Hypertension Social History marital status: household members: spouse lives independently: Yes occupational status: employed Smoking Status: Never smoker Assessment & Plan Assessment & Plan narrative: Assessment: 36-year-old 1 para 1 day # 2 status post spontaneous vaginal delivery after induction due to IUGR/severe preeclampsia Blood pressure stable No severe preeclampsia signs or symptoms Labs back to normal Plan: Discharge to home Labetalol 300 mg twice a day Follow-up in 4 days with dock superintendent for blood pressure check Warning signs reviewed regarding severe preeclampsia symptoms Time Spent With Patient Time with patient: less than 30 minutes Critical Care time: I spent a total of [] minutes of critical care time on this patient's care today; this time is exclusive of procedural time.
[2021-11-01 11:08] VITALS: BP 155/96; PULSE 76
== END 2021-11-01 14:39 | disposition home or self-care (01) | DRG 807 ==
PROVIDERS: Obstetrics & Gynecology; Admitting Provider Nurse Practitioner Obstetrics & Gynecology; PCP Registered Nurse; Referring Provider Nurse Practitioner Obstetrics & Gynecology; Visit Provider Nurse Practitioner Obstetrics & Gynecology
DX: O14.14 Severe pre-eclampsia complicating childbirth (principal); Z37.0 Single live birth; Z3A.36 36 weeks gestation of pregnancy; O76 Abnormality in fetal heart rate and rhythm complicating labor and delivery; O36.5930 Maternal care for other known or suspected poor fetal growth, third trimester, not applicable or unspecified; O70.1 Second degree perineal laceration during delivery; Z20.822 Contact with and (suspected) exposure to COVID-19
CPT/HCPCS: 01967; 36415; 59050; 59200; 82570; 83735; 84156; 84450; 84550; 85025; 86850; 86900; 86901; 87635; C9803; G0379; J1885; J2300; J2590; J3010; J3475

== ENCOUNTER → 2024-03-17 | Outpatient (CLI) | payer SELFPAY ==
--- NOTE | 2024-03-17 14:19 | DI.US.S_ITS ---
PROCEDURE: US OB >= 14 WEEKS FETUS INDICATIONS: 20 WEEK ANATOMY SCAN OUTSIDE/PRIOR DATING DATA: Last menstrual period (LMP): 10/20/2023. LMP-based estimated date of delivery (QUE): 07/27/2023. First dating scan (date and location): Unknown. Estimated date of delivery (QUE) from first dating scan: Unknown. The calculations are made using the clinical QUE of 07/31/2024. TECHNIQUE: Real-time scanning was performed of the fetus, with image documentation and biometric measurements. COMPARISON: [facility], US, US OB >= 14 WEEKS FETUS, 07/02/2021, 12:33. [facility] Ultrasound, US, US OB BIOPHYSICAL + UMBILICAL DOPPLER, 10/27/2021, 10:37. FINDINGS: General: A single living intrauterine gestation is present. Presentation: Vertex. Placenta: Placental position is anterior , without previa. Amniotic fluid index: 17 cm, normal range is 5-24 cm. Single deepest vertical pocket is 5.1 cm. heart rate: 133 beats per minute. Maternal cervical canal: 3.2 cm long. Normal lower limit is 2.5 cm. biometrics: Biparietal diameter: 4.8 cm 20 weeks 3 days Head circumference: 17.7 cm 20 weeks 1 day Abdominal circumference: 16.6 cm 21 weeks 5 days Femur length: 3.3 cm 20 weeks 2 days Clinically estimated gestational age: 20 weeks 4 days Composite gestational age from present scan: 20 weeks 5 days Estimated weight and percentile: 389 g 67th percentile Anatomic survey: Neuro: Ventricles are non-dilated at less than 10 mm. Cisterna magna is normal at 3-11 mm. Cerebellum is normal in size and morphology. Nuchal skin fold: Normal at less than 6 mm between 14-21 weeks gestational age. Face: Nose and lips, facial profile are normal. Spine: No evidence for spina bifida. Heart: 4-chambered heart is present, with normal ventricular outflow tracts. Diaphragm: Diaphragm is intact. Stomach: Left-sided stomach is present. Kidneys: No hydronephrosis. Normal is less than 5 mm in 2nd trimester, less than 7 mm in 3rd trimester. Cord: 3-vessel cord has orthotopic insertion. Bladder: Normal in size. Extremities: All 4 extremities identified. IMPRESSION: Single live intrauterine with gestational age today of 20 weeks 5 days. Anatomy is within normal limits. We strive to produce accurate, complete, and clear reports of imaging services. To assist us in improving patient care, this report was composed using standard report templates and voice recognition software. Therefore, it may contain abnormal punctuation, insertions and/or omissions. Occasional wrong-word or sound-alike substitutions may occur. Though we review the report and make efforts to correct it, we do recommend that the report be read carefully in proper context to recognize any text inaccuracies. Dictated by: Jaida Acosta M.D. on 03/18/2024 at 23:02 Approved by: Jaida Acosta M.D. on 03/18/2024 at 23:05
== END ==
PROVIDERS: PCP Registered Nurse; Referring Provider Advanced Practice Midwife; Visit Provider Advanced Practice Midwife
DX: Z34.82 Encounter for supervision of other normal pregnancy, second trimester (principal); Z3A.20 20 weeks gestation of pregnancy
CPT/HCPCS: 76811

== ENCOUNTER → 2024-06-22 11:48 | Outpatient (CLI) | payer OTHER, SELFPAY ==
--- NOTE | 2024-06-22 | DI.US.S_ITS ---
PROCEDURE: US OB LIMITED INDICATIONS: GESTATIONAL DIABETES/HIGH RISK. GROWTH AND BIOPHYSICAL OUTSIDE/PRIOR DATING DATA: Last menstrual period (LMP): 10/20/2023. LMP-based estimated date of delivery (QUE): 07/26/24. First dating scan (date and location): Not applicable. Estimated date of delivery (QUE) from first dating scan: Applicable. The calculations are made using the working QUE of 07/31/2024. TECHNIQUE: Real-time scanning was performed of the fetus, with image documentation. Endovaginal scanning: No COMPARISON: [facility], OB LIMITED, 10/22/2021, 16:20. FINDINGS: A single living intrauterine gestation is present. Presentation: Vertex. Placenta: Placental position is anterior, without previa. Amniotic fluid index: 29.1 cm, normal range is 5-24 cm. Single deepest vertical pocket is 8.3 cm. heart rate: 136 beats per minute. Maternal cervical canal: 4.1 cm long. Normal lower limit is 2.5 cm. BPD: 8.5 cm, 34 week 2 day HC: 1.4 cm, 35 week 1 day AC: 30.4 cm, 34 week 2 day FL: 6.3 cm, 32 week 5 day Clinically estimated gestational age: 34 week 3 day Estimated gestational age from initial scan: 34 week 1 day. EGW: 2315 g, 31 percentile Biophysical profile score 8/8 IMPRESSION: Single live intrauterine consistent with 34 week 1 day gestation by current ultrasound. Polyhydramnios. AMBROCIO 29.1 cm Biophysical profile score 8 out of 8 Approved by: Rodolfo Merchant M.D. on 06/22/2024 at 18:21
== END ==
PROVIDERS: PCP Registered Nurse; Referring Provider Nurse Practitioner Obstetrics & Gynecology; Visit Provider Nurse Practitioner Obstetrics & Gynecology
DX: O09.93 Supervision of high risk pregnancy, unspecified, third trimester (principal); O24.419 Gestational diabetes mellitus in pregnancy, unspecified control; Z3A.34 34 weeks gestation of pregnancy
CPT/HCPCS: 76815; 76819

== ENCOUNTER 2024-07-07 12:01 | Inpatient (IN) | payer OTHER, SELFPAY ==
[2024-07-07 12:52] LABS: Add Manual Diff / Slide Review NO; Basophils Absolute Auto 100 /uL (0-100); Basophils Percent Auto 0.8 % (0-2); Eosinophils Absolute Auto 100 /uL (0-450); Eosinophils Percent Auto 0.8 % (2-4); Hemoglobin 12.4 g/dL (12.0-16.0); Lymphocytes Absolute Auto 1700 /uL (1100-4500); Lymphocytes Percent Auto 20.3 % (25-40); Mean Corpuscular HGB Conc 33.4 % (30-36); Mean Corpuscular Hemoglobin 30.1 PG (26-34); Mean Corpuscular Volume 90.1 fL (80-100); Monocytes Absolute Auto 500 /uL (0-900); Monocytes Percent Auto 6.2 % (3-14); Neutrophils Absolute Auto 6000 /uL (1500-7000); Neutrophils Percent Auto 71.9 % (50-75); Platelet Count 299 X10^3/uL (150-400); Red Blood Cell Count 4.11 X10^6/uL (4.0-5.2); Red Cell Distribution Width 14.1 % (11.6-14.8); White Blood Cell Count 8.4 X10^3/uL (4.5-11.0)
[2024-07-07 12:56] LABS: Alanine Aminotransferase 19 IU/L (<35); Albumin 3.9 g/dL (3.5-5.0); Alkaline Phosphatase 139 U/L (38-126); Aspartate Aminotransferase 33 IU/L (14-36); BUN Creatinine Ratio 18.6 (6-22); Bilirubin Total 0.3 mg/dL (0.2-1.3); Blood Urea Nitrogen 13 mg/dL (7-17); Calcium 9.4 mg/dL (8.4-10.2); Carbon Dioxide 22 mmol/L (22-32); Chloride 105 mmol/L (98-107); Estimated Glomerular Filt Rate > 60 mL/min (>60); Globulin 3.8 g/dL (1.7-4.1); Glucose 87 mg/dL (70-100); HEMOLYSIS < 15 (0-50); Sodium 135 mmol/L (137-145); Total Protein 7.7 g/dL (6.3-8.2); Uric Acid 5.2 mg/dL (2.5-6.2)
[2024-07-07 13:03] LABS: Creatinine Urine Random 19.77 mg/dL; Protein (Total) Urine Random 13 mg/dL (0-12); Protein Creatinine Ratio Urine 0.65 GRAM/24H
--- NOTE | 2024-07-07 13:12 | DI.US.S_ITS ---
PROCEDURE: US OB LIMITED INDICATIONS: GDM, gest Hypertension OUTSIDE/PRIOR DATING DATA: Last menstrual period (LMP): 10/20/2023. LMP-based estimated date of delivery (QUE): 07/27/2023. First dating scan (date and location): Unknown Estimated date of delivery (QUE) from first dating scan: Unknown. TECHNIQUE: Real-time scanning was performed of the fetus, with image documentation and biometric measurements. COMPARISON: [facility], OB LIMITED, 06/22/2024, 12:25. FINDINGS: General: A single living intrauterine gestation is present. Presentation: Transverse. Placenta: Placental position is anterior , without previa. Amniotic fluid index: 16.2 cm, normal range is 5-24 cm. Single deepest vertical pocket is 6.1 cm. heart rate: 160 beats per minute. Maternal cervical canal: 3.7 cm long. Normal lower limit is 2.5 cm. biometrics: Clinically estimated gestational age: 36 weeks 4 days Other: Not applicable. IMPRESSION: Single live intrauterine with gestational age of 36 weeks 4 days. AMBROCIO is within normal limits. We strive to produce accurate, complete, and clear reports of imaging services. To assist us in improving patient care, this report was composed using standard report templates and voice recognition software. Therefore, it may contain abnormal punctuation, insertions and/or omissions. Occasional wrong-word or sound-alike substitutions may occur. Though we review the report and make efforts to correct it, we do recommend that the report be read carefully in proper context to recognize any text inaccuracies. Dictated by: Jaida Acosta M.D. on 07/07/2024 at 14:37 Approved by: Jaida Acosta M.D. on 07/07/2024 at 14:41
--- NOTE | 2024-07-07 14:34 | PM.OBHP.1 ---
OB HPI Date/Time Date of admission: 07/07/24 Date Patient Seen: 07/07/24 Time Patient Seen: 14:00 History of Present Condition Chief complaint: NST : 2 Para: 1 Estimated Date of Delivery: 07/31/24 Estimated Gestational Age (weeks): 36.4wk Narrative: Jaye Turk is a 39 year old female @ 36wks 4 days by 8wk US who presents for evaluation of headache. Woke from sleep with a headache that started in the front of her head and extends down the back of her head to her neck. Does not feel like a typical headache for her and has only achieved minimal relief with Tylenol 1000mg taken at 0300. care with CNMs co-managed with MFM d/t GDMA2 managed with metformin 1000mg QHS. GHTN was diagnosed 2 days ago and started on nifedipine XR 30mg, second daily dose was taken at 0700 this morning. +FM. No cramping, VB, LOF, vision changed, RUQ pain or increased edema. Has been taking LDASA throughout d/t hx of IOL for preeclampsia with severe features and IUGR with her first . Most recent growth US w/ MFM on 06/28/24 @ 35wks 2 days: EFW 2,630/ 5lbs 13oz (47th%). , Artis, is present and supportive. Indications Indication for induction OB: gestational HTN/pre-eclampsia History of Present care: good care, initiated at week # (8), number of visits (9) and pounds weight gain (30) Dating criteria: based on 1st trimester US only Ultrasounds: normal 1st trimester US, normal mid trimester US and other (normal serial growths and antepartum testing (mild poly now resolved)) Preadmission Labs Blood type: O (+) positive -: Antibody screen: negative, GBS status: positive, HBsAG: negative, HIV: negative and RPR/VDLR: negative -: Chlamydia screen: not detected and Gonorrhea screen: not detected -: Rubella: immune and Varicella: immune HCT: 34.2 HCAB: negative Cell-free DNA: negative Narrative: elevated 2hr GTT (2hr was 167) Prior (ies) History: 10/30/2021: NSVB s/p IOL for preeclampsia with severe features Hx # Term Pregnancies: 1 Hx # Pregnancies: 0 Number of Living Children: 1 Multiple births: 0 Spontaneous abortions: 0 Ectopic pregnancies: 0 Elective abortions: 0 Evaluation Evaluation Baseline heart rate: 135 Variability: Moderate (11-25) monitor accelerations: Present Monitor Decelerations: Absent Contraction Frequency (minutes): 0 PFSH Medical History Right hip pain Infertility Surgical History History of appendectomy Family History Father Hypertension Mother Hypertension Social History marital status: household members: spouse lives independently: Yes occupational status: employed Smoking Status: Never smoker Meds Home Medications and Allergies Home Medications Medication Instructions Recorded Confirmed Type metformin 500 mg tablet 500 tab PO 3XD 10/28/21 10/29/21 History nifedipine 30 mg tablet,extended 30 mg PO DAILY 07/07/24 07/07/24 History release Allergies Allergy/AdvReac Type Severity Reaction Status Date / Time No Known Drug Allergies Allergy Verified 10/22/21 15:03 Review of Systems Review of Systems ROS: Yes All systems reviewed with the patient and are negative except as otherwise documented OB Exam Vital signs Blood Pressure: 137/94 (140/86, 133/83, 134/81) Pulse Rate: 94 Temperature: 97.2 F Resp Effort & Inspection: normal respiratory effort and able to speak in complete sentences Auscultation: clear to auscultation bilaterally Cardio Rate: regular rate Rhythm: regular rhythm Presentation: transverse/shoulder Objective Imaging AMBROCIO: Radiologist's impression: Patient: Jaye Turk MR#: [id number] : 1985 Acct:[id number] Age/Sex: 39 / F Date of Service: 07/07/24 Loc: LABOR [id number] Accession Number: [id number] Procedure: US OB limited Ordering Provider: Amanda Martinez C.N.M. PROCEDURE: US OB LIMITED INDICATIONS: GDM, gest Hypertension OUTSIDE/PRIOR DATING DATA: Last menstrual period (LMP): 10/20/2023. LMP-based estimated date of delivery (QUE): 07/27/2023. First dating scan (date and location): Unknown Estimated date of delivery (QUE) from first dating scan: Unknown. TECHNIQUE: Real-time scanning was performed of the fetus, with image documentation and biometric measurements. COMPARISON: [facility], [facility], 06/22/2024, 12:25. FINDINGS: General: A single living intrauterine gestation is present. Presentation: Transverse. Placenta: Placental position is anterior , without previa. Amniotic fluid index: 16.2 cm, normal range is 5-24 cm. Single deepest vertical pocket is 6.1 cm. heart rate: 160 beats per minute. Maternal cervical canal: 3.7 cm long. Normal lower limit is 2.5 cm. biometrics: Clinically estimated gestational age: 36 weeks 4 days Other: Not applicable. IMPRESSION: Single live intrauterine with gestational age of 36 weeks 4 days. AMBROCIO is within normal limits. We strive to produce accurate, complete, and clear reports of imaging services. To assist us in improving patient care, this report was composed using standard report templates and voice recognition software. Therefore, it may contain abnormal punctuation, insertions and/or omissions. Occasional wrong-word or sound-alike substitutions may occur. Though we review the report and make efforts to correct it, we do recommend that the report be read carefully in proper context to recognize any text inaccuracies. Dictated by: Jaida Acosta M.D. on 07/07/2024 at 14:37 Approved by: Jaida Acosta M.D. on 07/07/2024 at 14:41 Labs 07/07/24 12:25 07/07/24 12:25 Labs: Laboratory Results - last 24 hr 07/07/24 12:25 WBC 8.4 RBC 4.11 Hgb 12.4 Hct 37.0 MCV 90.1 MCH 30.1 MCHC 33.4 RDW 14.1 Plt Count 299 Neut % (Auto) 71.9 Lymph % (Auto) 20.3 L [place] % (Auto) 6.2 Eos % (Auto) 0.8 L Baso % (Auto) 0.8 Neut # (Auto) 6000 Lymph # (Auto) 1700 [place] # (Auto) 500 Eos # (Auto) 100 Baso # (Auto) 100 Sodium 135 L Potassium 4.0 Chloride 105 Carbon Dioxide 22 BUN 13 Creatinine 0.70 Estimated GFR > 60 BUN/Creatinine Ratio 18.6 Glucose 87 Uric Acid 5.2 Calcium 9.4 Total Bilirubin 0.3 AST 33 ALT 19 Alkaline Phosphatase 139 H Total Protein 7.7 Albumin 3.9 Globulin 3.8 Albumin/Globulin Ratio 1.0 U Random Total Protein 13 H Urine Creatinine 19.77 Protein/Creatinin Ratio 0.65 Assessment and Plan Assessment and Plan Assessment and Plan narrative: A: Late primipara Preeclampsia with severe features GDMA2 malpresentation Cat I FHR P: Counseled on recommendation for IOL for preeclampsia with severe features and Jaye consents. Counseled on recommendation for ECV if desired for IOL and possibility of vaginal and Jaye desires this. Consulted [facility]/ who agrees with plan of care with will come talk to Jaye about an ECV. Initiate MgSO4 now. GBS PCR now. Reassess after ECV. Time-Based Coding :: [TOTAL MINUTES] spent with patient and on the chart (including review of chart, obtaining history, exam, reviewing outside data, placing orders, documenting exam and treatment plan, and counseling patient) on [DATE].
[2024-07-07 15:51] LABS: Strep Grp B PCR POS for Grp B Strep
[2024-07-07] MEDS: MAGNESIUM SULFATE 4 GM/100 ML PIGGYBACK IV (15:53)
[2024-07-07] MEDS: MAGNESIUM SULFATE 20 GM/500 ML IV.SOLN IV (16:34)
[2024-07-07 17:37] VITALS: BP 143/94
[2024-07-07] MEDS: CALCIUM CARBONATE 500 MG TAB 1000 MG PO (18:07)
[2024-07-07 18:45] VITALS: TEMP 36.2
[2024-07-07] MEDS: ACETAMINOPHEN 325 MG TABLET 975 MG PO (18:45)
[2024-07-07 19:04] VITALS: BP 137/94; PULSE 94; TEMP 36.2
[2024-07-07] MEDS: ePHEDrine 50 MG/ML VIAL 10 MG IV ×2 (19:24→19:51)
[2024-07-07] MEDS: ONDANSETRON 4 MG/2 ML INJ IV (19:26)
[2024-07-07] MEDS: TERBUTALINE 1 MG/ML VIAL 0.25 MG SUBCUT (19:36)
--- NOTE | 2024-07-07 19:36 | P.PCN_ITS ---
[facility] <Justina Mcmanus, DO - Last Filed: 07/07/24 19:46> Pre-procedure Procedure: Continuous Lumbar Epidural for L&D (with dural puncture) Attending OB provider: Amanda Maritnez PMH/ROS narrative: 39yo at 36w4d with pre-eclampsia and GDM and breech position here for version. Rebecca mildly; pt can barely feel. Pt requests epidural for version and labor, which will be induced if version is successful due to pt's pr e-eclampsia. BMI 40.3. ASA Class: III Labs: Hct 37.0 % (36-46) 07/07/24 12:25 Plt Count 299 X10^3/uL (150-400) 07/07/24 12:25 Medications: Current Medications Generic Name Dose Route Start Last Admin Trade Name Freq PRN Reason Stop Dose Admin Calcium Carbonate 1,000 mg 07/07/24 14:30 07/07/24 18:07 Calcium Carbonate 500 Mg Tab PO 1,000 mg Q2HR PRN Administration Dyspepsia Carboprost Tromethamine 250 mcg 07/07/24 14:30 Carboprost 250 Mcg/Ml Ampul IM Q90M PRN Bleeding Fentanyl 100 mcg 07/07/24 14:30 Fentanyl 100 Mcg/2 Ml Inj IV Q1H PRN Pain, Severe (7-10) Hydralazine HCl 5 mg 07/07/24 14:29 Hydralazine 20 Mg/Ml Vial IV NOW PRN SBP>= 160 or DBP >=110 Protocol Magnesium Sulfate 20 gm in 500 mls @ 50 mls/hr 07/07/24 14:30 07/07/24 16:34 Magnesium Sulfate IV 50 mls/hr CONT TERRY Administration Lactated Ringer's 1,000 mls @ 100 mls/hr 07/07/24 14:30 Lactated Ringers IV 07/08/24 00:29 CONT TERRY Oxytocin/Lactated Ringer's 30 unit in 500 mls @ 200 mls/hr 07/07/24 14:30 Oxytocin Premix IV CONT PRN Bleeding Protocol Tranexamic Acid 1,000 mg/ 100 mls @ 600 mls/hr 07/07/24 14:30 Sodium Chloride IV NOW PRN Bleeding Oxytocin/Lactated Ringer's 30 unit in 500 mls @ 2 mls/hr 07/07/24 14:30 Oxytocin Premix IV TITRATE TERRY Protocol 2 MILLIUNIT/MIN Labetalol HCl 20 mg 07/07/24 14:29 Labetalol 20 Mg/4 Ml Syringe IV PRN PRN SBP>= 160 or DBP >=110 Protocol Lidocaine HCl 20 ml 07/07/24 14:30 Lidocaine 1% 20 Ml INJ INTRA-OP PRN Post Delivery Methylergonovine Maleate 0.2 mg 07/07/24 14:30 Methylergonovine 0.2 Mg Tablet PO Q6HR PRN Heavy Bleeding Methylergonovine Maleate 0.2 mg 07/07/24 14:30 Methylergonovine 0.2 Mg/Ml Vial IM NOW PRN Bleeding Mineral Oil 30 ml 07/07/24 14:30 Mineral Oil 30 Ml Udc TOP PRN PRN Version Misoprostol 800 mcg 07/07/24 14:30 Misoprostol 200 Mcg Tablet [place] NOW PRN Bleeding Misoprostol 400 mcg 07/07/24 14:30 Misoprostol 200 Mcg Tablet SL NOW PRN Bleeding Naloxone HCl 0.2 mg 07/07/24 14:30 Naloxone 0.4 Mg/Ml Vial IV Q2MIN PRN Opiate Reversal Ondansetron HCl 4 mg 07/07/24 14:30 07/07/24 19:26 Ondansetron 4 Mg/2 Ml Inj IV 4 mg Q4HR PRN Administration Nausea And Vomiting Oxytocin 10 unit 07/07/24 14:30 Oxytocin 10 Unit/Ml Vial IM NOW PRN Bleeding Allergies: Allergies Allergy/AdvReac Type Severity Reaction Status Date / Time No Known Drug Allergies Allergy Verified 10/22/21 15:03 Procedure Insertion date: 07/07/24 Insertion time: 19:05 Prep/Local: 1% lidocaine (Chloraprep) Interspace: L3-4 Patient position: sitting Needle: 18 gauge [place] (27g pencil-point for dural puncture) Loss of resistance with: saline USMAN at (cm): 7 Catheter placed at SKIN (cm): 15 Catheter in SPACE (cm): 8 Sensory level: T8 bilaterally Insertion: No CSF, No Blood, No Paresthesia with insertion, No Paresthesia with injection and Yes Test dose reaction Initial Medications TEST DOSE time: 19:07 TEST DOSE: 1.5% lidocaine with epinephrine 1:200k (mL): 3 BOLUS DOSE time: 19:10 BOLUS DOSE (mL): 2 BOLUS DOSE med: other (Same as test dose) Infusion INFUSION: 0.125% bupivacaine and with fentanyl 2 mcg/mL Initial rate (mL/hr): 6 Subsequent interventions: Pt had idiosyncratic reaction to test dose--reported shakes, nausea, B cheek tingling and B leg tingling. Denied perioral numbness or metallic taste or heart racing. Symptoms resolved after a minute. Pt able to move BLE easily. BP stable in 130s systolic; HR stable. Waited two more minutes and gave small bolus dose. Pt reported no sx. Aspiration negative before both doses. About fifteen minutes later, pt had hypotension to low 100s and nausea. Ephedrine and Zofran given with good relief. Level checked and was at T8 bilaterally. Pt remains able to move BLE and started feeling better as BP improved to 120s. Epidural infusion started at low rate of 6 ml/hr with only 3 ml PCEA dose. Post-procedure Anesthesia date START: 07/07/24 Anesthesia time START: 18:56 <Nicolasa Mijares CRNA - Last Filed: 07/09/24 17:10> Infusion Subsequent interventions: Pt had idiosyncratic reaction to test dose--reported shakes, nausea, B cheek tingling and B leg tingling. Denied perioral numbness or metallic taste or heart racing. Symptoms resolved after a minute. Pt able to move BLE easily. BP stable in 130s systolic; HR stable. Waited two more minutes and gave small bolus dose. Pt reported no sx. Aspiration negative before both doses. About fifteen minutes later, pt had hypotension to low 100s and nausea. Ephedrine and Zofran given with good relief. Level checked and was at T8 bilaterally. Pt remains able to move BLE and started feeling better as BP improved to 120s. Epidural infusion started at low rate of 6 ml/hr with only 3 ml PCEA dose. 2230: Called for epidural top off. Patient has been using her PCEA and feeling some pain with contractions equal on both sides. 5mL 2% lido top off given. Increased basal rate to 10mL/hr and PCEA dose to 5mL/hr. 2245: Pt states she is now comfortable. States she can feel pressure with contractions and rates pain a 3/10. - MARICHUY WELLS Post-procedure Anesthesia date END: 07/08/24 Anesthesia time END: 22:54 Post-procedure Anesthesia Assessment: Yes CV function: HR/BP stable, Yes Resp function: RR/sat/airway adequate, Yes Post-op hydration adequate, Yes Pain control adequate, Yes Nausea & vomiting absent, Yes Temperature > 36 C, Yes Mental status appropriate and No Anesthesia complications
[2024-07-07] MEDS: MINERAL OIL 30 ML UDC TOP (19:37)
--- NOTE | 2024-07-07 19:55 | PM.OBPNLAB ---
Date/Time Date Patient Seen: 07/07/24 Time Patient Seen: 19:40 Pain Control Pain control: epidural Comments: Epidural was requested by Jaye and placed prior to ECV. Adequate pain relief was achieved. Multiple episodes of hypotension required ephedrine x2 doses along with 1L LR IVFB. ECV unsuccessful. Pelvic Exam station: -2 Comments: CE deferred Contractions Contractions on admission: none Status status: Category l Heart Rate Baseline: 120 Monitor Accelerations: Present Monitor Decelerations: Absent Monitor Variability: Moderate Assessment and Plan Assessment: other (breech presentation, preeclampsia with severe features) Plan: Comments: Transfer care to OB service for primary . Both [facility]/ and OB back-up in room at time of ECV and in agreement with plan for primary .
--- NOTE | 2024-07-07 20:06 | PM.PROC.IH ---
Procedures Date/Time Date of procedure: 07/07/24 Time of procedure: 19:30 General Procedure description: ECV Counseling Note: Pt was counseled regarding the risks, benefits, and alternatives to external cephalic version. She was informed of the risk of distress, premature rupture of membranes, placental abruption, fetomaternal hemorrhage, emergent delivery, cord prolapse, and even , however these risks are very low (6% overall risk of any complications). She was informed of the benefit of successful external cephalic version being a planned vaginal , which has inherently lower risks than planned delivery. The alternative to this procedure attempt would be to plan for delivery unless the baby has spontaneous version to vertex presentation. Pre-procedure FHR: 140s bpm Pre-procedure toco: acontractile Pre-procedure US: breech presentation, SDP 8cm Pre-medication given: terbutaline 0.25mg x1 Procedure: Patient received an epidural prior to procedure. An external cephalic version was attempted after real time ultrasound determination of position. After 3 attempts (both forward and backward roll), the infant remained in breech presentation, thus the procedure was ended. Patient was then counseled and consented for primary delivery due to newly diagnosed pre-eclampsia with severe features today. 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
[2024-07-07] MEDS: LACTATED RINGERS 1,000 ML 100 ML IV (21:00)
[2024-07-07 21:14] VITALS: BP 143/94
--- NOTE | 2024-07-07 22:25 | P.PNOB_ITS ---
Date/Time Date Patient Seen: 07/07/24 Time Patient Seen: 22:26 Pain Control Pain control: epidural Comments: Unsuccessful ECV earlier this evening, fetus remains in breech presentation not amenable to vaginal delivery. Pelvic Exam station: -2 Status status: Category l Heart Rate Baseline: 120 Monitor Accelerations: Present Monitor Decelerations: Absent Monitor Variability: Moderate Assessment and Plan Plan: Comments: Consent form for section was reviewed with the patient. Risk of re action to medication or anesthesia, risk of bleeding enough to require blood transfusion which she is agreeable to, risk of infection, risk of damage to internal structures such as bowel, bladder, ureters that could require additional surgery to repair. Consent form signed and questions answered. Pre- op instructions reviewed. Precautions reviewed.
[2024-07-07] MEDS: CITRIC ACID/SODIUM CITRATE 15 ML SOLUTION 30 ML PO (22:33)
--- NOTE | 2024-07-07 22:59 | P.PNOB_ITS ---
Pain Control Pain control: epidural Comments: heart rate noted to be lower and maternal abdomen during prep in OR for section. Ultrasound demonstrated head in left transverse position. ECV attempted and successful in repositioning fetus to vertex presentation confirmed on ultrasound. Pelvic Exam station: -2 Amniotic membrane status: Intact Status status: Category l Heart Rate Baseline: 120 Assessment and Plan Assessment: induction ongoing Plan: begin patient augmentation Comments: 39-year-old at [place] 36+4 weeks. Successful ECV resulting in vertex presentation confirmed by US. Transfer care back to [facility], proceed with planned mIOL for severe pre-eclampsia.
--- NOTE | 2024-07-07 23:10 | SUR.OPER ---
case cancelled due to baby flipping out of breech, pt to deliver vaginally.
--- NOTE | 2024-07-07 23:11 | SUR.OPER ---
20g IV placed in R AC. Blood return noted. Line flushed with 0.9% NaCl and taped.
--- NOTE | 2024-07-07 23:49 | P.PNOB_ITS ---
Date/Time Date Patient Seen: 07/07/24 Time Patient Seen: 23:49 Pain Control Pain control: epidural Comments: Care transferred back to [facility] for IOL now that cephalic presentation has been verified. Adequate epidural anesthesia in place. Jaye is happy to not need a at this point and agrees to begin IOL. VS: BP 122/64, HR 106, T 35.4C Temporal. Pelvic Exam Dilation (cm): 2.5 Effacement (%): 70 station: -4 Amniotic membrane status: Intact Contractions Contractions on admission: none Monitor mode: External Contraction frequency (min): 0 Status status: Category l Heart Rate Baseline: 120 Monitor Accelerations: Present Monitor Decelerations: Absent Monitor Variability: Moderate Assessment and Plan Assessment: induction ongoing Plan: begin patient augmentation Comments: Counseled on recommendation for IOL for preeclamspia with severe features and obtained informed consent, form signed by Jaye. Ruiz balloon placed during exam and inflated w/ 60mL NS. Pitocin started per protocol. Will consider AROM when appropriate. Will continue to consult for BP management PRN. Reassess after Ruiz balloon comes out.
[2024-07-08] MEDS: OXYTOCIN PREMIX 30 UNIT/500 ML PLAST..BAG IV ×2 (01:21→20:38)
[2024-07-08] MEDS: MAGNESIUM SULFATE 20 GM/500 ML IV.SOLN IV ×3 (02:07→21:57)
--- NOTE | 2024-07-08 05:18 | P.PNOB_ITS ---
Date/Time Date Patient Seen: 07/08/24 Time Patient Seen: 05:18 Pain Control Pain control: epidural Comments: Jaye has been able to rest comfortably, changing positions frequently. Difficulty monitoring FHR unless she is in her side. Ruiz balloon out at 0430. VS: BP 100/58, HR 86bpm, T 36.2C Temporal Pelvic Exam Dilation (cm): 5 Effacement (%): 80 station: -3 Amniotic membrane status: Intact Contractions Monitor mode: External Pitocin rate (mU/min): 8 Contraction frequency (min): 3 Contraction duration (min): 1 Contraction pattern: Regular Status status: Category l Heart Rate Baseline: 125 Monitor Accelerations: Present Monitor Decelerations: Absent Monitor Variability: Moderate Assessment and Plan Assessment: induction ongoing Plan: continuous present management Comments: Continue pitocin titration to adequate contraction pattern. Begin GBS prophy laxis. Reassess in 4 hours. Will consider AROM at that time if head is low enough.
[2024-07-08] MEDS: LACTATED RINGERS 1,000 ML 75 ML IV ×2 (05:41→20:35)
[2024-07-08] MEDS: AMPICILLIN 2,000 MG in SODIUM CHLORIDE 0.9% 100 ML 200 MG IV (06:07)
[2024-07-08] MEDS: FENT 2MCG/ML BUPIV 0.125% EPI 200 MCG/100 ML PLAST..BAG 6 MCG EPIDURAL ×2 (07:27→21:48)
--- NOTE | 2024-07-08 07:35 | PM.OBPNLAB ---
Date/Time Date Patient Seen: 07/08/24 Time Patient Seen: 07:35 Pain Control Comments: Jaye has continued to rest and take in clear PO fluids. Has significant symptomatic positional hypotension with supine positioning so has been altering upright/semi-lopez's positions with a peanut ball. CNM called to room by RN for patient report of intermittent vaginal pressure. Headache had resolved overnight and now starting to return, rated at 4/10, felt in front, bilaterally VS: BP 119/70, HR 88bpm, T 35.8C Temporal Random BG 111 @ 0715 MgSO4 @ 2gm/hr (50mL/hr) LR @ 75mL/hr Pitocin @ 10mu/min Pelvic Exam Dilation (cm): 6 Effacement (%): 80 station: -3 Amniotic membrane status: Intact (BBOW w/ contractions) Comments: cephalic presentation by CE Contractions Contractions on admission: none Monitor mode: External Pitocin rate (mU/min): 10 Contraction frequency (min): 4 Contraction duration (min): 1 Contraction pattern: Regular Contraction intensity: Moderate Status status: Category l Heart Rate Baseline: 120 Monitor Accelerations: Present Monitor Decelerations: Absent Monitor Variability: Moderate Assessment and Plan Assessment: active labor Plan: continuous present management Comments: Continue pitocin titration to adequate contraction pattern. Tylenol 975mg and black tea PO for headache. MgSO4 level now. Plan for AROM at 0940. Notified OB Back-up/ of patient status and plan of care and no addition orders recommended. Reassess at 0940.
[2024-07-08] MEDS: ACETAMINOPHEN 325 MG TABLET 975 MG PO (07:53)
[2024-07-08 08:53] LABS: Magnesium 5.8 mg/dL (1.6-2.3)
[2024-07-08] MEDS: AMPICILLIN 1,000 MG in SODIUM CHLORIDE 0.9% 100 ML 200 MG IV ×4 (09:38→22:38)
--- NOTE | 2024-07-08 10:51 | PM.OBPNLAB ---
Date/Time Date Patient Seen: 07/08/24 Time Patient Seen: 10:40 Pain Control Pain control: epidural Comments: Headache has resolved after caffeine and tylenol. No pain. Remains comfortable w/adequate epidural anesthesia. Agreeable to AROM. VS: BP 132/72, HR 78, Temp 35.8C, RR 16 Mag level therapeutic. Pelvic Exam Dilation (cm): 6 Effacement (%): 80 station: -3 Amniotic membrane status: Ruptured (AROM performed clear fluid) Contractions Monitor mode: External Pitocin rate (mU/min): 14 Contraction frequency (min): 4 (2-8) Contraction duration (min): 60 (60-80) Contraction pattern: Regular Contraction intensity: Moderate Status status: Category l Heart Rate Baseline: 115 Monitor Accelerations: Present Monitor Decelerations: Absent Monitor Variability: Moderate Assessment and Plan Assessment: induction ongoing Plan: continuous present management Comments: Encouraged upright positioning for next 30minutes Reassess in 4 hours or sooner as needed.
[2024-07-08 14:44] LABS: Alanine Aminotransferase 21 IU/L (<35); Albumin 3.6 g/dL (3.5-5.0); Alkaline Phosphatase 153 U/L (38-126); Aspartate Aminotransferase 36 IU/L (14-36); BUN Creatinine Ratio 16.1 (6-22); Bilirubin Total 0.5 mg/dL (0.2-1.3); Blood Urea Nitrogen 10 mg/dL (7-17); Calcium 6.5 mg/dL (8.4-10.2); Carbon Dioxide 16 mmol/L (22-32); Chloride 104 mmol/L (98-107); Estimated Glomerular Filt Rate > 60 mL/min (>60); Globulin 3.5 g/dL (1.7-4.1); Glucose 98 mg/dL (70-100); HEMOLYSIS 42 (0-50); Potassium 4.2 mmol/L (3.4-5.1); Sodium 130 mmol/L (137-145); Total Protein 7.1 g/dL (6.3-8.2); Uric Acid 5.6 mg/dL (2.5-6.2)
[2024-07-08 15:06] LABS: Add Manual Diff / Slide Review NO; Basophils Absolute Auto 0 /uL (0-100); Basophils Percent Auto 0.3 % (0-2); Eosinophils Absolute Auto 100 /uL (0-450); Eosinophils Percent Auto 0.4 % (2-4); Hematocrit 33.3 % (36-46); Hemoglobin 11.1 g/dL (12.0-16.0); Lymphocytes Absolute Auto 1700 /uL (1100-4500); Lymphocytes Percent Auto 13.7 % (25-40); Mean Corpuscular HGB Conc 33.3 % (30-36); Mean Corpuscular Volume 90.1 fL (80-100); Monocytes Absolute Auto 600 /uL (0-900); Monocytes Percent Auto 4.7 % (3-14); Neutrophils Absolute Auto 10000 /uL (1500-7000); Neutrophils Percent Auto 80.9 % (50-75); Platelet Count 270 X10^3/uL (150-400); Red Blood Cell Count 3.69 X10^6/uL (4.0-5.2); Red Cell Distribution Width 14.5 % (11.6-14.8); White Blood Cell Count 12.4 X10^3/uL (4.5-11.0)
[2024-07-08 15:31] LABS: Magnesium 5.9 mg/dL (1.6-2.3)
--- NOTE | 2024-07-08 16:26 | PM.OBPNLAB ---
Date/Time Date Patient Seen: 07/08/24 Time Patient Seen: 16:26 Pain Control Pain control: epidural Comments: Adequate pain control w/epidural. Frustrated by lack of progress, eager to move labor along. Agreeable to IUPC placement. VS: BP 139/84, HR 71, temp 37.1C, 96% O2 sat, RR 18 Pelvic Exam Dilation (cm): 6 Effacement (%): 80 station: -3 Amniotic membrane status: Ruptured (AROM performed clear fluid) Contractions Monitor mode: External Pitocin rate (mU/min): 20 Contraction frequency (min): 4 (2-6) Contraction duration (min): 1 (60-80seconds) Contraction pattern: Regular Contraction intensity: Moderate Intrauterine tone measurement: 180 (Initial MVUs 180) Status status: Category l Heart Rate Baseline: 115 Monitor Accelerations: Present Monitor Decelerations: Absent Monitor Variability: Moderate Assessment and Plan Assessment: induction ongoing Plan: continuous present management
[2024-07-08 19:22] LABS: Creatinine Urine Random 19.07 mg/dL; Protein (Total) Urine Random 115 mg/dL (0-12); Protein Creatinine Ratio Urine 6.03 GRAM/24H
[2024-07-08] MEDS: NIFEdipine 10 MG CAPSULE PO (19:33)
[2024-07-08] MEDS: CALCIUM CARBONATE 500 MG TAB 1000 MG PO (20:32)
--- NOTE | 2024-07-08 20:45 | PM.OBPNLAB ---
Date/Time Date Patient Seen: 07/08/24 Time Patient Seen: 20:45 Pain Control Pain control: epidural Comments: Feeling pressure in lower abdomen and pelvic pressure w/contractions, no pain, using PCEA to maintain adequate pain control. No rectal pressure. Continues to leak copious amounts of clear fluid. Ruiz draining blood tinged urine, consistently good urine output. Nifedipine held this am due to maternal positional hypotension w/epidural, BP began to increase around 1800 single dose of Nifedipine 10mg given. VS: BP: 130/87, HR-74, O2 sat 96%, temp 98.6F Pelvic Exam Dilation (cm): 6 Effacement (%): 80 station: -2 Amniotic membrane status: Ruptured (AROM performed clear fluid) Comments: IUPC in place. Slight effacement and 1cm descent noted in the last 4 hours of adequate contractions since IUPC placed Contractions Monitor mode: External Pitocin rate (mU/min): 18 Contraction frequency (min): 2 Contraction duration (min): 1 Contraction pattern: Regular Contraction intensity: Moderate Intrauterine tone measurement: 185 (Initial MVUs 180, Pitocin decreased when MVUs were 305) Status status: Category ll Heart Rate Baseline: 125 Monitor Accelerations: Present Monitor Decelerations: Late (occasional ) and Variable (occasional ) Monitor Variability: Moderate Assessment and Plan Assessment: induction ongoing (Prolonged active phase, nearing arrest of active phase) Plan: continuous present management Comments: Discussed w/patient 12 hours w/ minimal cervical change and intermittently adequate contractions (MVU range 150-250). Given apparent wellbeing and maternal desire to continue to labor, encouraged the [place] circuit and will reassess in two hours. If no cervical change at that time, will consult w/OB for primary and patient agreeable.
--- NOTE | 2024-07-08 21:50 | PM.OBPNLAB ---
Date/Time Date Patient Seen: 07/08/24 Time Patient Seen: 21:50 Pain Control Pain control: epidural (using PCEA) Comments: Feeling increased rectal pressure and low abdominal pain w/contractions. Epidural medication being changed by RN at this time. Changing positions every 10-20min Pelvic Exam Dilation (cm): 7 Effacement (%): 90 station: -2 Amniotic membrane status: Leaking (clear fluid) Comments: Cervical exam for variable decels and increased rectal pressure, 1cm cervical change since last exam. Contractions Monitor mode: External Pitocin rate (mU/min): 18 Contraction frequency (min): 2 Contraction duration (min): 1 Contraction pattern: Regular Contraction intensity: Moderate Status status: Category ll Heart Rate Baseline: 140 Monitor Accelerations: Present Monitor Decelerations: Variable (with contractions) Monitor Variability: Moderate Assessment and Plan Assessment: active labor and induction ongoing Plan: continuous present management
--- NOTE | 2024-07-08 23:23 | P.PCNOB_ITS ---
Events: Pre-Eclampsia Labor & Delivery Delivery date: 07/08/24 Delivery Time: 22:54 Intrapartal Events: Prolonged Active Phase and Severe Preeclampsia Cervical ripening method: per Ruiz bulb protocol Induction method: per pitocin protocol Delivery augmentation: rupture of membranes Delivery monitor: external FHT and internal uterine Route of delivery: Episiotomy description: None L&D Laceration Description: Perineal - 1st Degree Quantitative Blood Loss: 50 Anesthesia Type: Epidural Narrative: IOL for preeclampsia with severe features after successful ECV, initiated with f oley balloon and pitocin. Labor progressed slowly with pitocin (max dose 20mu/min) and AROM, requiring IUPC which was also utilized for amnioinfusion for category II FHR tracing shortly before second stage. CNM in room managing category II FHR tracing with rapid cervical change from 8cm to complete. RT was called to standby. Adequate pain relief with epidural. Rapid descent with minimal maternal pushing efforts. NSVB of a viable male , delivered VIDAL. Shoulders delivered without additional maneuvers, no nuchal cord, loop of cord noted at the neck with delivery of the head. Baby placed on maternal abdomen for drying and stimulation with notably short cord. Apgars 7 and 8. Remaining pitocin 30u/500ml infused at 200cc/hr for AMTSL. After cessation of pulsing cord, it was clamped by SNM and cut by FOB. Cord blood sample collected. Delivery of apparently intact placenta delivered, with succenturiate lobe noted. Fundus firm, QBL 50mL. First degree laceration, hemostaic and well approximated with no indication for repair. Mother and baby stable when I left the room. [place] Baby 1: gender: Male Presentation: vertex Position: Right Occiput Anterior Placenta delivery description: Spontaneous and Abnormal Configuration (succenturiate lobe noted) Cord Vessel Description: 3 Vessels score (1 min): 7 score (5 min): 8 weight: 2.239 kg Plan for aftercare: Other
[2024-07-09] MEDS: KETOROLAC 30 MG/ML VIAL IV (04:05)
[2024-07-09 06:23] LABS: Add Manual Diff / Slide Review NO; Basophils Absolute Auto 100 /uL (0-100); Basophils Percent Auto 0.6 % (0-2); Eosinophils Absolute Auto 0 /uL (0-450); Eosinophils Percent Auto 0.4 % (2-4); Hematocrit 32.6 % (36-46); Lymphocytes Absolute Auto 1700 /uL (1100-4500); Lymphocytes Percent Auto 13.4 % (25-40); Mean Corpuscular HGB Conc 33.8 % (30-36); Mean Corpuscular Hemoglobin 30.2 PG (26-34); Mean Corpuscular Volume 89.4 fL (80-100); Monocytes Absolute Auto 700 /uL (0-900); Monocytes Percent Auto 5.9 % (3-14); Neutrophils Absolute Auto 10100 /uL (1500-7000); Neutrophils Percent Auto 79.7 % (50-75); Platelet Count 263 X10^3/uL (150-400); Red Blood Cell Count 3.65 X10^6/uL (4.0-5.2); Red Cell Distribution Width 14.4 % (11.6-14.8); White Blood Cell Count 12.6 X10^3/uL (4.5-11.0)
[2024-07-09 06:47] LABS: Magnesium 6.1 mg/dL (1.6-2.3)
[2024-07-09 06:52] LABS: Alanine Aminotransferase 17 IU/L (<35); Albumin 2.8 g/dL (3.5-5.0); Alkaline Phosphatase 134 U/L (38-126); Aspartate Aminotransferase 30 IU/L (14-36); BUN Creatinine Ratio 14.5 (6-22); Bilirubin Total 0.2 mg/dL (0.2-1.3); Blood Urea Nitrogen 10 mg/dL (7-17); Calcium 6.5 mg/dL (8.4-10.2); Carbon Dioxide 19 mmol/L (22-32); Chloride 104 mmol/L (98-107); Estimated Glomerular Filt Rate > 60 mL/min (>60); Globulin 2.8 g/dL (1.7-4.1); Glucose 114 mg/dL (70-100); HEMOLYSIS < 15 (0-50); Potassium 4.5 mmol/L (3.4-5.1); Sodium 129 mmol/L (137-145); Total Protein 5.6 g/dL (6.3-8.2); Uric Acid 5.6 mg/dL (2.5-6.2)
[2024-07-09] MEDS: NIFEdipine 30 MG TAB ER PO (08:39)
[2024-07-09] MEDS: MAGNESIUM SULFATE 20 GM/500 ML IV.SOLN IV (08:40)
--- NOTE | 2024-07-09 12:24 | PM.OBPN.1 ---
Subjective - OB Subjective Interval history: 14 hours s/p NSVB. Feeling sore and tired, but very happy with her experience. independently, though baby was sleepy this last attempt. Vaginal bleeding is light without clots. Ambulating and voiding without difficulty. No headache, vision changes, RUQ pian or increased edema. Exam Vital Signs (past 8 hours): BP 135/74, HR 83, RR 17, T 98.7F Temporal Const General: comfortable and other (tired) Orientation: alert, awake and oriented x3 Resp Effort & Inspection: normal respiratory effort and able to speak in complete sentences Auscultation: clear to auscultation bilaterally Cardio Rate: regular rate Rhythm: regular rhythm Other: Fundus firm @ u, lochia scant Neuro General: moves all extremities DTR's: Rt Patellar: 1+ and Lt Patellar: 1+ Extrem Right lower extremity: edema Details: non-pitting and lower leg Left lower extremity: edema Details: non-pitting and lower leg Objective Labs 07/09/24 06:16 07/09/24 06:16 Labs: Laboratory Results - last 24 hr 07/08/24 07/08/24 07/08/24 14:20 14:55 18:45 WBC 12.4 H RBC 3.69 L Hgb 11.1 L Hct 33.3 L MCV 90.1 MCH 30.0 MCHC 33.3 RDW 14.5 Plt Count 270 Neut % (Auto) 80.9 H Lymph % (Auto) 13.7 L [place] % (Auto) 4.7 Eos % (Auto) 0.4 L Baso % (Auto) 0.3 Neut # (Auto) 21882 H Lymph # (Auto) 1700 [place] # (Auto) 600 Eos # (Auto) 100 Baso # (Auto) 0 Sodium 130 L Potassium 4.2 Chloride 104 Carbon Dioxide 16 L BUN 10 Creatinine 0.62 Estimated GFR > 60 BUN/Creatinine Ratio 16.1 Glucose 98 Uric Acid 5.6 Calcium 6.5 L Magnesium 5.9 H* Total Bilirubin 0.5 AST 36 ALT 21 Alkaline Phosphatase 153 H Total Protein 7.1 Albumin 3.6 Globulin 3.5 Albumin/Globulin Ratio 1.0 U Random Total Protein 115 H Urine Creatinine 19.07 Protein/Creatinin Ratio 6.03 07/09/24 06:16 WBC 12.6 H RBC 3.65 L Hgb 11.0 L Hct 32.6 L MCV 89.4 MCH 30.2 MCHC 33.8 RDW 14.4 Plt Count 263 Neut % (Auto) 79.7 H Lymph % (Auto) 13.4 L [place] % (Auto) 5.9 Eos % (Auto) 0.4 L Baso % (Auto) 0.6 Neut # (Auto) 18495 H Lymph # (Auto) 1700 [place] # (Auto) 700 Eos # (Auto) 0 Baso # (Auto) 100 Sodium 129 L Potassium 4.5 Chloride 104 Carbon Dioxide 19 L BUN 10 Creatinine 0.69 Estimated GFR > 60 BUN/Creatinine Ratio 14.5 Glucose 114 H Uric Acid 5.6 Calcium 6.5 L Magnesium 6.1 H* Total Bilirubin 0.2 AST 30 ALT 17 Alkaline Phosphatase 134 H Total Protein 5.6 L Albumin 2.8 L Globulin 2.8 Albumin/Globulin Ratio 1.0 U Random Total Protein Urine Creatinine Protein/Creatinin Ratio Assessment & Plan Assessment and Plan (1) Severe preeclampsia: Problem details: stable 14 hours after delivery on MgSO4 and PO nifedipine Status: Acute Assessment and plan: Reviewed labs, VS, antihypertensive medication and plan of care with [facility] OB/. Plan to discontinue MgSO4 at this time and monitor BPs on oral meds for the next 24 hours. If BPs> 140/90, will increase to nifedipine XR 30mg. (2) First degree perineal laceration during delivery: Problem details: routine course Status: Acute Assessment and plan: Continue routine care Plan day: 1 plan OB: routine care (discontinue MgSO4) Time-Based Coding :: [30] spent with patient and on the chart (including review of chart, obtaining history, exam, reviewing outside data, placing orders, documenting exam and treatment plan, and counseling patient) on [07/09/2024].
[2024-07-09] MEDS: NIFEdipine 30 MG TAB ER 60 MG PO (21:24)
[2024-07-09] MEDS: SERTRALINE 50 MG TABLET PO (22:55)
[2024-07-10] MEDS: ACETAMINOPHEN 325 MG TABLET 650 MG PO (01:22)
[2024-07-10] MEDS: IBUPROFEN 600 MG TABLET PO (01:22)
[2024-07-10] MEDS: LORazepam 2 MG/ML INJ IV (05:32)
--- NOTE | 2024-07-10 07:40 | PM.OBDS.1 ---
Discharge Providers Provider Date of admission: 07/07/24 12:01 Discharge Date: 07/10/24 Primary care physician: GOPI Agarwal Consults: 07/09/24 23:16 Consult to Planting Supervisor Routine Comment: Discharge provider: Amanda Martinez CNM Summary Hospital Course Date Patient Seen: 07/10/24 Time Patient Seen: 07:40 Peripartum Data Infant Delivery Method: Natural Vaginal Laceration Description: Perineal - 1st Degree Episiotomy description: None [place] 1: Gender: Male Discharge Diagnosis (1) Severe preeclampsia: Status: Acute Problem Details: stable 14 hours after delivery on MgSO4 and PO nifedipine (2) First degree perineal laceration during delivery: Status: Acute Problem Details: routine course Time Spent with Patient Time attestation: Total time spent providing and/or coordinating discharge services: Objective Labs 07/09/24 06:16 07/09/24 06:16 Labs: Laboratory Results - last 24 hr 07/09/24 14:00 U Random Total Protein TNP Urine Creatinine TNP Protein/Creatinin Ratio TNP Exam Vital Signs (past 8 hours): BP 122/71, HR 80bpm, RR 18, T 97.7F temporal, SpO2 99% Discharge Plan Discharge Plan Patient Disposition: Home Discharge orders & Medications Prescriptions: New ibuprofen 600 mg Tablet 600 mg PO Q6HR PRN (Reason: Pain, Mild (1-3)) 14 Days Qty: 60 0RF nifedipine 60 mg tablet extended release 60 mg PO DAILY Qty: 14 0RF Discontinued metformin 500 mg tablet 500 tab PO 3XD Patient Comments: take 1 tablet by mouth daily for 1 week then 1 tablet twice a day... (REFER TO PRESCRIPTION NOTES). nifedipine 30 mg tablet extended release 30 mg PO DAILY Follow up/Referrals: Song Ball ARNP [Primary Care Provider] - Amanda Martinez CNM [[employer]] - (Has 6 day BP check, 2week and 6 week scheduled and in her email.) Diet/Activity/Treatments Diet: Diet as Tolerated and Regular Visit Report/Discharge Packet Instructions: DI for Depression Stand Alone Forms: Patient Portal/API, Stroke Signs & Symptoms Discharge Data Primary Care Provider: Song Ball Attending Provider: Amanda Martinez Admit Date/Time: 07/07/24 12:01
[2024-07-10] MEDS: LANOLIN OINT 7 GM 1 APPLIC TOP (08:20)
[2024-07-10] MEDS: DERMOPLAST SPRAY 20% 60 ML 1 SPRAY TOP (08:20)
[2024-07-10 12:34] LABS: Add Manual Diff / Slide Review NO; Basophils Absolute Auto 0 /uL (0-100); Basophils Percent Auto 0.4 % (0-2); Eosinophils Absolute Auto 0 /uL (0-450); Eosinophils Percent Auto 0.5 % (2-4); Hematocrit 31.2 % (36-46); Hemoglobin 10.6 g/dL (12.0-16.0); Lymphocytes Absolute Auto 1800 /uL (1100-4500); Lymphocytes Percent Auto 18.7 % (25-40); Mean Corpuscular Hemoglobin 30.8 PG (26-34); Mean Corpuscular Volume 90.6 fL (80-100); Monocytes Absolute Auto 500 /uL (0-900); Monocytes Percent Auto 5.4 % (3-14); Neutrophils Absolute Auto 7200 /uL (1500-7000); Platelet Count 287 X10^3/uL (150-400); Red Blood Cell Count 3.44 X10^6/uL (4.0-5.2); White Blood Cell Count 9.6 X10^3/uL (4.5-11.0)
[2024-07-10 12:53] LABS: Alanine Aminotransferase 20 IU/L (<35); Albumin 3.5 g/dL (3.5-5.0); Alkaline Phosphatase 114 U/L (38-126); Aspartate Aminotransferase 28 IU/L (14-36); Bilirubin Total 0.2 mg/dL (0.2-1.3); Blood Urea Nitrogen 8 mg/dL (7-17); Calcium 8.7 mg/dL (8.4-10.2); Carbon Dioxide 21 mmol/L (22-32); Chloride 107 mmol/L (98-107); Estimated Glomerular Filt Rate > 60 mL/min (>60); Globulin 3.5 g/dL (1.7-4.1); Glucose 89 mg/dL (70-100); HEMOLYSIS < 15 (0-50); Potassium 4.4 mmol/L (3.4-5.1); Sodium 135 mmol/L (137-145); Uric Acid 4.2 mg/dL (2.5-6.2)
== END 2024-07-10 12:51 | disposition home or self-care (01) | DRG 807 ==
PROVIDERS: Family Medicine; Admitting Provider Nurse Practitioner Obstetrics & Gynecology; PCP Registered Nurse; Referring Provider Nurse Practitioner Obstetrics & Gynecology; Visit Provider Nurse Practitioner Obstetrics & Gynecology
PROC: (CPT 59514; principal; 2024-07-07 23:00)
DX: O14.14 Severe pre-eclampsia complicating childbirth (principal); Z37.0 Single live birth; Z3A.36 36 weeks gestation of pregnancy; O99.824 Streptococcus B carrier state complicating childbirth; O24.429 Gestational diabetes mellitus in childbirth, unspecified control; O32.1XX0 Maternal care for breech presentation, not applicable or unspecified; O76 Abnormality in fetal heart rate and rhythm complicating labor and delivery; O63.1 Prolonged second stage (of labor); O43.193 Other malformation of placenta, third trimester; Z79.84 Long term (current) use of oral hypoglycemic drugs
CPT/HCPCS: 36415; 59025; 59050; 59412; 76815; 80053; 83735; 84550; 85025; 86850; 86900; 86901; 87653; A9270; G0379; J0290; J1885; J2060; J2274; J2405; J2590; J3475